=== PATIENT | female | born 1930 | race Caucasian/White ===

== ENCOUNTER 2017-02-01 11:24 | Emergency (ER) | payer MEDICARE, OTHER ==
[2017-02-01] MEDS ORDERED: Meclizine TAB* 12.5 MG PO ONE (14:43)
[2017-02-01] MEDS ORDERED: NS 0.9% 1000 ML* 1,000 ML IV ONE (14:43)
--- NOTE | 2017-02-01 15:09 | RAD ---
Indication: Dizziness; affecting gait. No known injury. Comparison: November 02, 2011 Technique: Noncontrast CT vertex of skull through foramen magnum. Report: Mild prominence of the cerebral sulci and cerebellar fissures reflecting atrophy. Small foci of hypodensity at the bilateral external capsules without change noted most consistent with small lacunar infarcts or microvascular disease. Negative for lewis matter white matter obscuration, intra or extra-axial hemorrhage, or mass effect. Unremarkable visualized orbital contents. No fracture or suspicious lesion of the calvarium or skull base. Grossly clear visualized paranasal sinuses and visualized mastoid air spaces. Negative for scalp hematoma. IMPRESSION: 1. No acute intracranial process evident. 2. Mild involutional change. Chronic small vessel ischemic disease versus chronic small lacunar infarcts at the external capsules.
--- NOTE | 2017-02-01 15:14 | RAD ---
INDICATION: Dizziness. COMPARISON: Comparison is made with prior chest x-ray study from October 29, 2014. TECHNIQUE: A portable view of the chest was obtained. FINDINGS: The heart is within normal limits in size for this portable exam. The lungs are underinflated. There is a minimal infiltrate at the right lung base most consistent with atelectasis. The lungs are otherwise clear. No pleural effusion is seen. IMPRESSION: NO EVIDENCE FOR ACUTE FINDING.
[2017-02-01 16:49] LABS: Hematocrit 36 % (35-47); Mean Corpuscular HGB Conc 33 g/dl (31-36); Mean Corpuscular Hemoglobin 30 pg (27-31); Mean Corpuscular Volume 90 fL (80-97); Mean Platelet Volume 7 um3 (7.4-10.4); Red Blood Count 4.03 10^6/ul (4.0-5.4); Red Cell Distribution Width 14 % (10.5-15); White Blood Count 5.2 10^3/ul (3.5-10.8)
[2017-02-01 16:56] LABS: Urine Bacteria Absent (Absent); Urine Bilirubin Negative (Negative); Urine Glucose Negative (Negative); Urine Nitrite Negative (Negative)
[2017-02-01 17:13] LABS: Albumin 3.8 g/dL (3.2-5.2); C Reactive Protein 2.61 mg/L (< 5.00); Calcium 9.9 mg/dL (8.6-10.3); EGFR African American 73.3 (>60); Globulin 2.4 g/dL (2-4); Magnesium 2.3 mg/dL (1.9-2.7); Potassium 4.6 mmol/L (3.5-5.0); Total Bilirubin 0.4 mg/dL (0.2-1.0); Total Protein 6.2 g/dL (6.4-8.9); Troponin I 0.01 ng/mL (<0.04)
[2017-02-01 17:37] LABS: TSH (Thyroid Stimulating Horm) 1.05 mcIU/mL (0.34-5.60)
--- NOTE | 2017-02-01 18:18 | ED ---
Edilma Willson Alok, scribed for Rodriguez Fitzpatrick MD on 02/01/17 at 1425 . Dizziness - HPI Summary HPI Summary: 86 y/o female presents to the ED for a bout of dizziness this morning at 1115. Pt states that she felt fine when waking up this morning, but while leaving her physical therapist at 1115 she began to feel [id number] dizziness causing her an unsteady gait. Pt states she rested and improved enough to drive home but then felt fatigue and disoriented after arriving home appearing pale and diaphoretic. Since arriving to the ED, patient states she feels much better an is able to ambulate but her symptoms return when she tilts her head backward. The overall episode of dizziness lasted about two hours in total. Pt adds slight nausea, chills, and that her heart is "pounding". Pt denies rhinorrea, sore throat, CP, SOB, or diarrhea. Pt states she has h/o vertigo and has had bouts of dizziness similar as today intermittently for the past 2-3 weeks. She states that she has also been stressed recently due to moving out of her home. PMHx includes 5 UTI since hip replacement in July 2016 and has been taking Keflex for the last 3 months. Pt also takes nexium for GERD. Pt denies sinus pressure or related sinus BENJAMIN but does note minor irritation from seasonal allergic. - History Of Current Complaint Chief Complaint: EDDizziness Stated Complaint: DIZZY/LOSS OF BALANCE Time Seen by Provider: 02/01/17 13:50 Hx Obtained From: Patient Onset/Duration: Still Present, Gradually Timing: Hours Severity Initially: Moderate Severity Currently: Mild Character: Room Spinning, Dizzy Aggravating Factor(s): Change In Head Position Alleviating Factor(s): Rest Associated Signs And Symptoms: Positive: Nausea, Diaphoresis, Unsteady Gait, Chills. Negative: Diarrhea, Chest Pain, SOB - Allergies/Home Medications Allergies/Adverse Reactions: Allergies Allergy/AdvReac Type Severity Reaction Status Date / Time Nitrofurantoin Allergy Severe heart Verified 10/02/16 16:22 palpatations Pyridoxine [From Beesix] Allergy Severe Swelling Verified 10/02/16 16:22 Latex Allergy Rash Verified 10/02/16 16:22 Sulfa Antibiotics Allergy Rash Verified 10/02/16 16:22 Tramadol Allergy nausea/vomi Verified 10/02/16 16:22 ting Oxycodone [From Percocet] AdvReac Vomiting Verified 10/02/16 16:22 environmental Allergy headache, Uncoded 10/02/16 16:22 stuffy nose PMH/Surg Hx/FS Hx/Imm Hx Endocrine/Hematology History: Reports: Hx Anemia - HX OF Denies: Hx Anticoagulant Therapy - states no, Hx Blood Disorders, Hx Bone Marrow Disease, Hx Diabetes, Hx Systemic Lupus Erythematosus, Hx Sickle Cell Disease, Hx Thyroid Disease, Hx Unexplained Bleeding, Other Endocrine/ Hematological Disorders Cardiovascular History: Reports: Hx Hypertension, Other Cardiovascular Problems/ Disorders - afib Denies: Hx Aneurysm, Hx Angina, Hx Angioplasty, Hx Auto Implanted Cardiovert Defib, Hx Cardiac Arrest, Hx Cardiomegaly, Hx Congenital Heart Disease, Hx Congestive Heart Failure, Hx Coronary Artery Disease, Hx Deep Vein Thrombosis, Hx Hypercholesterolemia, Hx Hypotension, Hx Pacemaker/ICD, Hx Peripheral Vascular Disease, Hx Rheumatic Fever, Hx Syncope, Hx Valvular Heart Disease Respiratory History: Reports: Hx Seasonal Allergies - environmental allergies Denies: Hx Asthma, Hx Chronic Bronchitis, Hx Chronic Obstructive Pulmonary Disease (COPD), Hx Cystic Fibrosis, Hx Lung Cancer, Hx Pleural Effusion, Hx Pneumonia, Hx Pulmonary Edema, Hx Pulmonary Embolism, Hx Sleep Apnea, Other Respiratory Problems/Disorders GI History: Reports: Hx Gall Bladder Disease - gall bladder surgery, Hx Gastroesophageal Reflux Disease, Other GI Disorders - acid reflux Denies: Hx Cirrhosis, Hx Crohn's Disease, Hx Diverticulosis, Hx Gastrointestinal Bleed, Hx Hiatal Hernia, Hx Irritable Bowel, Hx Jaundice, Hx Obstructive Bowel, Hx Ileostomy, Hx Pyloric Stenosis, Hx Ulcer History: Reports: Hx Kidney Stones, Other Problems/Disorders - overactive bladder Denies: Hx Acute Renal Failure, Hx Benign Prostatic Hyperplasia, Hx Chronic Renal Failure, Hx Dialysis, Hx Kidney Infection, Hx Renal Disease Musculoskeletal History: Reports: Hx Arthritis, Hx Back Problems, Hx Osteoporosis, Other Musculoskeletal History - knee replacement Denies: Hx Rheumatoid Arthritis, Hx Bursitis, Hx Congenital Bone Abnormalities, Hx Fibromyalgia, Hx Gout, Hx Orthopedic Injury, Hx Scoliosis, Hx Tendonitis Sensory History: Reports: Hx Cataracts, Hx Contacts or Glasses, Hx Macular Degeneration, 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 Denies: Hx Eye Injury, Hx Eye Prosthesis, Hx Glaucoma, Hx Vision Problem, Hx Hearing Aid, Hx Hearing Problem, Other Sensory Impairments Opthamlomology History: Reports: Hx Cataracts, Hx Contacts or Glasses, Hx Macular Degeneration Denies: Hx Eye Injury, Hx Eye Prosthesis, Hx Glaucoma, Hx Vision Problem, Other Sensory Impairments Psychiatric History: Denies: Hx Panic Disorder, Other Psychiatric Issues/Disorders - Cancer History Cancer Type, Location and Year: skin cancers Hx Chemotherapy: No Hx Radiation Therapy: No - Surgical History Surgery Procedure, Year, and Place: HYSTERECTOMY, ABDOMINAL CYST, CHOLECYSTECTOMY, LEFT KNEE REPLACEMENT, Bilateral hip replacement,. ERCP Hx Anesthesia Reactions: No Infectious Disease History: Denies: Hx Clostridium Difficile, Hx Hepatitis, Hx Human Immunodeficiency Virus (HIV), Hx of Known/Suspected MRSA, Hx Shingles, Hx Tuberculosis, Hx Known/ Suspected VRE, Hx Known/Suspected VRSA, History Other Infectious Disease, Traveled Outside the [place] in Last 30 Days - Family History Known Family History: Positive: Other - breast cancer Negative: Cardiac Disease, Hypertension, Diabetes - Social History Occupation: Retired Lives: With Family Alcohol Use: Weekly Substance Use Type: Reports: None Hx Tobacco Use: No Smoking Status (MU): Former Smoker Have You Smoked in the Last Year: No Review of Systems Positive: Chills, Skin Diaphoresis. Negative: Fever Negative: Sore Throat, Nasal Discharge Negative: Chest Pain Negative: Shortness Of Breath Positive: Nausea. Negative: Diarrhea Skin: Other - Pallor Neurological: Other - Dizziness, Unsteady Gait All Other Systems Reviewed And Are Negative: Yes Physical Exam Triage Information Reviewed: Yes Vital Signs On Initial Exam: Initial Vitals Temp Pulse Resp BP Pulse Ox 96.2 F 59 20 138/65 99 02/01/17 11:26 02/01/17 11:26 02/01/17 11:26 02/01/17 11:26 02/01/17 11:26 Vital Signs Reviewed: Yes Appearance: Positive: Well-Appearing, No Pain Distress Skin: Positive: Warm, Skin Color Reflects Adequate Perfusion, Dry Head/Face: Positive: Normal Head/Face Inspection Eyes: Positive: JENS, Other: - Slight nystagmus ENT: Positive: TMs normal Neck: Positive: Supple, Nontender Respiratory/Lung Sounds: Positive: Clear to Auscultation, Breath Sounds Present Cardiovascular: Positive: RRR Abdomen Description: Positive: Nontender, Soft Bowel Sounds: Positive: Present Musculoskeletal: Positive: Normal, Strength/ROM Intact Neurological: Positive: Normal, Sensory/Motor Intact, Alert, Oriented to Person Place, Time Psychiatric: Positive: Affect/Mood Appropriate Diagnostics - Vital Signs Vital Signs Temp Pulse Resp BP Pulse Ox 02/01/17 12:20 96.7 F 64 20 144/91 98 02/01/17 11:26 96.2 F 59 20 138/65 99 - Laboratory Lab Results: Lab Results 02/01/17 02/01/17 02/01/17 Range/Units 16:30 16:30 16:30 WBC 5.2 (3.5-10.8) 10^3/ul RBC 4.03 (4.0-5.4) 10^6/ul Hgb 12.0 (12.0-16.0) g/dl Hct 36 (35-47) % MCV 90 (80-97) fL MCH 30 (27-31) pg MCHC 33 (31-36) g/dl RDW 14 (10.5-15) % Plt Count 245 (150-450) 10^3/ul MPV 7 L (7.4-10.4) um3 Neut % (Auto) 50.3 (38-83) % Lymph % (Auto) 26.1 (25-47) % [place] % (Auto) 11.1 H (1-9) % Eos % (Auto) 11.4 H (0-6) % Baso % (Auto) 1.1 (0-2) % Absolute Neuts (auto) 2.6 (1.5-7.7) 10^3/ul Absolute Lymphs (auto) 1.4 (1.0-4.8) 10^3/ul Absolute Monos (auto) 0.6 (0-0.8) 10^3/ul Absolute Eos (auto) 0.6 (0-0.6) 10^3/ul Absolute Basos (auto) 0.1 (0-0.2) 10^3/ul Absolute Nucleated RBC 0 10^3/ul Nucleated RBC % 0.1 INR (Anticoag Therapy) 0.78 L (0.89-1.11) APTT 32.8 (26.0-36.3) seconds D-Dimer, Quantitative 379 H (Less Than 230) ng/mL Sodium (133-145) mmol/L Potassium (3.5-5.0) mmol/L Chloride (101-111) mmol/L Carbon Dioxide (22-32) mmol/L Anion Gap (2-11) mmol/L BUN (6-24) mg/dL Creatinine (0.51-0.95) mg/dL Est GFR ( Amer) (>60) Est GFR (Non-Af Amer) (>60) BUN/Creatinine Ratio (8-20) Glucose (70-100) mg/dL Lactic Acid (0.5-2.0) mmol/L Calcium (8.6-10.3) mg/dL Magnesium (1.9-2.7) mg/dL Total Bilirubin (0.2-1.0) mg/dL AST (13-39) U/L ALT (7-52) U/L Alkaline Phosphatase (34-104) U/L Total Creatine Kinase (10-223) U/L CK-MB (CK-2) (0.6-6.3) ng/mL Troponin I (<0.04) ng/mL C-Reactive Protein (< 5.00) mg/L B-Natriuretic Peptide ( - 100) pg/mL Total Protein (6.4-8.9) g/dL Albumin (3.2-5.2) g/dL Globulin (2-4) g/dL Albumin/Globulin Ratio (1-3) Lipase (11.0-82.0) U/L TSH (0.34-5.60) mcIU/mL Urine Color Straw Urine Appearance Clear Urine pH 6.0 (5-9) Ur Specific [place] 1.013 (1.010-1.030) Urine Protein Negative (Negative) Urine Ketones Negative (Negative) Urine Blood Negative (Negative) Urine Nitrate Negative (Negative) Urine Bilirubin Negative (Negative) Urine Urobilinogen Negative (Negative) Ur Leukocyte Esterase Trace H (Negative) Urine WBC (Auto) Trace(0-5/hpf) (Absent) Urine RBC (Auto) Absent (Absent) Ur Squamous Epith Cells Present H (Absent) Urine Bacteria Absent (Absent) Urine Glucose Negative (Negative) Urine Ascorbic Acid * H (Negative) 02/01/17 02/01/17 02/01/17 Range/Units 16:30 16:30 16:30 WBC (3.5-10.8) 10^3/ul RBC (4.0-5.4) 10^6/ul Hgb (12.0-16.0) g/dl Hct (35-47) % MCV (80-97) fL MCH (27-31) pg MCHC (31-36) g/dl RDW (10.5-15) % Plt Count (150-450) 10^3/ul MPV (7.4-10.4) um3 Neut % (Auto) (38-83) % Lymph % (Auto) (25-47) % [place] % (Auto) (1-9) % Eos % (Auto) (0-6) % Baso % (Auto) (0-2) % Absolute Neuts (auto) (1.5-7.7) 10^3/ul Absolute Lymphs (auto) (1.0-4.8) 10^3/ul Absolute Monos (auto) (0-0.8) 10^3/ul Absolute Eos (auto) (0-0.6) 10^3/ul Absolute Basos (auto) (0-0.2) 10^3/ul Absolute Nucleated RBC 10^3/ul Nucleated RBC % INR (Anticoag Therapy) (0.89-1.11) APTT (26.0-36.3) seconds D-Dimer, Quantitative (Less Than 230) ng/mL Sodium 139 (133-145) mmol/L Potassium 4.6 (3.5-5.0) mmol/L Chloride 106 (101-111) mmol/L Carbon Dioxide 29 (22-32) mmol/L Anion Gap 4 (2-11) mmol/L BUN 27 H (6-24) mg/dL Creatinine 0.93 (0.51-0.95) mg/dL Est GFR ( Amer) 73.3 (>60) Est GFR (Non-Af Amer) 57.0 (>60) BUN/Creatinine Ratio 29.0 H (8-20) Glucose 109 H (70-100) mg/dL Lactic Acid 1.1 (0.5-2.0) mmol/L Calcium 9.9 (8.6-10.3) mg/dL Magnesium 2.3 (1.9-2.7) mg/dL Total Bilirubin 0.40 (0.2-1.0) mg/dL AST 13 (13-39) U/L ALT 9 (7-52) U/L Alkaline Phosphatase 73 (34-104) U/L Total Creatine Kinase 34 (10-223) U/L CK-MB (CK-2) 1.9 (0.6-6.3) ng/mL Troponin I 0.01 (<0.04) ng/mL C-Reactive Protein 2.61 (< 5.00) mg/L B-Natriuretic Peptide 148 H ( - 100) pg/mL Total Protein 6.2 L (6.4-8.9) g/dL Albumin 3.8 (3.2-5.2) g/dL Globulin 2.4 (2-4) g/dL Albumin/Globulin Ratio 1.6 (1-3) Lipase 38 (11.0-82.0) U/L TSH 1.05 (0.34-5.60) mcIU/mL Urine Color Urine Appearance Urine pH (5-9) Ur Specific [place] (1.010-1.030) Urine Protein (Negative) Urine Ketones (Negative) Urine Blood (Negative) Urine Nitrate (Negative) Urine Bilirubin (Negative) Urine Urobilinogen (Negative) Ur Leukocyte Esterase (Negative) Urine WBC (Auto) (Absent) Urine RBC (Auto) (Absent) Ur Squamous Epith Cells (Absent) Urine Bacteria (Absent) Urine Glucose (Negative) Urine Ascorbic Acid (Negative) Result Diagrams: 02/01/17 16:30 02/01/17 16:30 Lab Statement: Any lab studies that have been ordered have been reviewed, and results considered in the medical decision making process. - Radiology CXR Xray Interpretation: Positive (See Comments) - IMPRESSION: NO EVIDENCE FOR ACUTE FINDING. Radiology Interpretation Completed By: Radiologist - CT Brain CT CT Interpretation: Positive (See Comments) - IMPRESSION: 1. No acute intracranial process evident. 2. Mild involutional change. Chronic small vessel ischemic disease versus chronic small lacunar infarcts at the external capsules. CT Interpretation Completed By: Radiologist - EKG 1134 Cardiac Rate: Bradycardia - 51 bpm EKG Rhythm: Sinus Bradycardia ST Segment: Normal Ectopy: None Dizzy Course/Dx - Course Course Of Treatment: NO CRITICAL CARE TIME Assessment/Plan: IMPROVED IN ED. HR MOSTLY IN THE 50'S. MONITOR HAS RECORED LOW 48. HR POSSIBLY LOW 39. RESULTS/HR DISCUSSED WITH PATIENT/FAMILY/ DR THOMAS. PATIENT WISHES TO GO HOME. DISCHARGE HOME STABLE; PATIENT WILL RETURN IF WORSE OR CONCERNS. - Diagnoses Provider Diagnoses: Dizziness, Bradycardia - Provider Notifications Discussed Care Of Patient with: Dr. Thomas (Internal medicine, Pt PCP) @ 1916 Discharge - Discharge Plan Condition: Stable Disposition: HOME Prescriptions: Meclizine HCl [Meclizine 25] 25 mg PO Q6HR PRN #15 tab PRN Reason: Dizziness Patient Education Materials: Dizziness (ED) Referrals: Jay Thomas MD [Primary Care Provider] - Additional Instructions: FOLLOW UP WITH JAY THOMAS IN THE NEXT 1-3 DAYS. TAKE MECLIZINE 25MG EVERY 6 HOURS NEEDED FOR DIZZINESS. RETURN TO THE EMERGENCY DEPARTMENT FOR ANY WORSENING OF YOUR CONDITION; CHEST PAIN, SHORTNESS OF BREATH, WEAKNESS, NUMBNESS, YOUR DIZZINESS DOES NOT IMPROVE OR WORSENS OR QUESTIONS OR CONCERNS. The documentation as recorded by the Edilma baker Alok accurately reflects the service I personally performed and the decisions made by me, Rodriguez Fitzpatrick MD.
[2017-02-01 18:39] VITALS: BP 148/59
== END 2017-02-01 18:20 | disposition home or self-care (01) ==
LOC: ED 11:24
DX: R42 Dizziness and giddiness (principal); R00.1 Bradycardia, unspecified; Z88.2 Allergy status to sulfonamides; K21.9 Gastro-esophageal reflux disease without esophagitis; Z88.5 Allergy status to narcotic agent; I10 Essential (primary) hypertension; Z85.828 Personal history of other malignant neoplasm of skin
CPT/HCPCS: 36415; 70450; 71010; 80053; 81003; 81015; 82550; 82553; 83605; 83690; 83735; 83880; 84443; 84484; 85025; 85379; 85610; 85730; 86140; 87086; 93005; 99283; A9270-GY

== ENCOUNTER 2018-08-10 11:41 | Emergency (ER) | payer MEDICARE, OTHER ==
[2018-08-10 11:52] VITALS: BP 142/70
--- NOTE | 2018-08-10 12:28 | UC ---
Shoulder Pain HPI - HPI Summary HPI Summary: 88 yo F, hx of rotator cuff tears in R shoulder, presenting w 2-3 mo of L shoulder pain that feels similar to R rotator cuff pain. Since diagnosis of R sided injury, she has primarily used her LUE for many tasks. She now has difficulty with ROM and increased pain in L shoulder w attempted ROM. She denies any injuries to the shoulder. Does not have weakness or numbness. She's not currently taking any medications for the pain. Family hx non-contributory. medications discussed w patient - History of Current Complaint Chief Complaint: UCUpperExtremity Stated Complaint: SHOULDER PAIN Time Seen by Provider: 08/10/18 12:22 Hx Obtained From: Patient Pain Intensity: 10 - Allergies/Home Medications Allergies/Adverse Reactions: Allergies Allergy/AdvReac Type Severity Reaction Status Date / Time MS Nitrofurantoin Allergy Severe heart Verified 02/07/17 14:47 [Nitrofurantoin] palpatations MS Pyridoxine [From Beesix] Allergy Severe Swelling Verified 02/07/17 14:47 MS Latex [Latex] Allergy Rash Verified 02/07/17 14:47 MS Sulfa Antibiotics Allergy Rash Verified 02/07/17 14:47 [Sulfa Antibiotics] MS Tramadol [Tramadol] Allergy nausea/vomi Verified 02/07/17 14:47 ting MS Oxycodone [From Percocet] AdvReac Vomiting Verified 02/07/17 14:47 environmental Allergy headache, Uncoded 02/07/17 14:47 stuffy nose PMH/Surg Hx/FS Hx/Imm Hx Other History Of: Negative For: Anticoagulant Therapy - states no - Surgical History Surgical History: Yes Surgery Procedure, Year, and Place: HYSTERECTOMY,. ABDOMINAL CYST,. CHOLECYSTECTOMY,. LEFT KNEE REPLACEMENT,. Bilateral hip replacement,. ERCP. 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 MOHS ON NOSE REMOVED. DR. WYLIE REPAIR TO NOSE FOR MOHS - Family History Known Family History: Positive: Other - breast cancer Negative: Cardiac Disease, Hypertension, Diabetes - Social History Alcohol Use: Weekly Substance Use Type: None Smoking Status (MU): Former Smoker Have You Smoked in the Last Year: No - Immunization History Most Recent Influenza Vaccination: last month Most Recent Tetanus Shot: does not know Most Recent Pneumonia Vaccination: within five years Review of Systems Musculoskeletal: Decreased ROM Neurological: Negative All Other Systems Reviewed And Are Negative: Yes Physical Exam Triage Information Reviewed: Yes Appearance: Well-Appearing, Well-Nourished Vital Signs: Initial Vital Signs Temp 98 F 08/10/18 11:49 Pulse 59 08/10/18 11:49 Resp 17 08/10/18 11:49 BP 142/70 08/10/18 11:49 Pulse Ox 99 08/10/18 11:49 Vital Signs Reviewed: Yes Eyes: Positive: Conjunctiva Clear Respiratory: Positive: No respiratory distress, No accessory muscle use Musculoskeletal Exam: Other - L shoulder TTP, reduced ROM 2/2 pain, unable to lift after for empty-can test 2/2 pain, +weakness w posterior lift off test Musculoskeletal: Positive: Strength Intact Neurological: Positive: Alert, Muscle Tone Normal Psychological: Positive: Age Appropriate Behavior Skin Exam: Normal Shoulder Course/Dx - Course Course Of Treatment: chronic shoulder pain. XR performed 1 mo ago showing OA and possible rotator cuff injury. patient refused rpt imaging given no clinical changes. ibuprofen and tylenol for pain. will make f/u appointment w PCP and Orthopedist - Differential Dx/Diagnosis Provider Diagnoses: chronic shoulder pain Discharge - Sign-Out/Discharge Documenting (check all that apply): Patient Departure All imaging exams completed and their final reports reviewed: No Studies - Discharge Plan Condition: Stable Disposition: HOME Patient Education Materials: Rotator Cuff Injury (ED), Osteoarthritis (ED) Referrals: Janelle Robertson MD [Primary Care Provider] - - Billing Disposition and Condition Condition: STABLE Disposition: Home
[2018-08-10] MEDS ORDERED: Ibuprofen TAB* 400 MG PO ONE (12:29)
[2018-08-10] MEDS: Acetaminophen TAB* 325 MG PO ONE ×2 (13:01→13:04)
[2018-08-10] MEDS ORDERED: Acetaminophen TAB* 325 MG ONE (13:06)
== END 2018-08-10 13:14 | disposition home or self-care (01) ==
LOC: UCEAST 11:41
DX: M25.512 Pain in left shoulder (principal); Z96.652 Presence of left artificial knee joint; Z96.643 Presence of artificial hip joint, bilateral; Z88.5 Allergy status to narcotic agent; Z88.2 Allergy status to sulfonamides; Z88.1 Allergy status to other antibiotic agents; Z91.040 Latex allergy status; Z87.891 Personal history of nicotine dependence
CPT/HCPCS: 99212; A9270-GY; G0463

== ENCOUNTER 2018-12-04 15:47 | Observation (INO) | payer MEDICARE, OTHER ==
--- NOTE | 2018-12-04 16:05 | ED ---
Shortness of Breath - HPI Summary HPI Summary: Pt is an 88 y/o F presenting to the ED with a chief complaint of shortness of breath. The pt had a lung biopsy done this morning which could not be fully completed due to pt coughing up blood. On her way out, she had sudden chest pain and sob that is now resolved. Pt reports moderate sharp R sided chest/ flank pain where the biopsy was done. - History of Current Complaint Chief Complaint: EDChestPainROMI Time Seen by Provider: 12/04/18 15:56 Hx Obtained From: Patient Onset/Duration: Sudden Onset, Lasting Minutes, Resolved Current Severity: Mild Aggrevating Factors: Nothing Alleviating Factors: Spontaneous Resolution - Allergy/Home Medications Allergies/Adverse Reactions: Allergies Allergy/AdvReac Type Severity Reaction Status Date / Time codeine Allergy Vomiting Verified 12/04/18 15:56 latex Allergy Rash Verified 12/04/18 15:56 nitrofurantoin Allergy See Comment Verified 12/04/18 15:56 oxycodone [From Percocet] Allergy Vomiting Verified 12/04/18 15:56 pyridoxine Allergy Vomiting Verified 12/04/18 15:56 Sulfa (Sulfonamide Allergy Rash Verified 12/04/18 15:56 Antibiotics) tramadol Allergy Nausea And Verified 12/04/18 15:56 Vomiting environmental Allergy headache, Uncoded 11/27/18 10:28 stuffy nose PMH/Surg Hx/FS Hx/Imm Hx Previously Healthy: No Endocrine/Hematology History: Reports: Hx Anemia - HX OF Denies: Hx Anticoagulant Therapy - states no, Hx Blood Disorders, Hx Bone Marrow Disease, Hx Diabetes, Hx Systemic Lupus Erythematosus, Hx Sickle Cell Disease, Hx Thyroid Disease, Hx Unexplained Bleeding, Other Endocrine/ Hematological Disorders Cardiovascular History: Reports: Hx Hypertension - ON MEDICATION, Other Cardiovascular Problems/Disorders - afib Denies: Hx Aneurysm, Hx Angina, Hx Angioplasty, Hx Auto Implanted Cardiovert Defib, Hx Cardiac Arrest, Hx Cardiomegaly, Hx Congenital Heart Disease, Hx Congestive Heart Failure, Hx Coronary Artery Disease, Hx Deep Vein Thrombosis, Hx Hypercholesterolemia, Hx Hypotension, Hx Pacemaker/ICD, Hx Peripheral Vascular Disease, Hx Rheumatic Fever, Hx Syncope, Hx Valvular Heart Disease Respiratory History: Reports: Hx Seasonal Allergies - environmental allergies Denies: Hx Asthma, Hx Chronic Bronchitis, Hx Chronic Obstructive Pulmonary Disease (COPD), Hx Cystic Fibrosis, Hx Lung Cancer, Hx Pleural Effusion, Hx Pneumonia, Hx Pulmonary Edema, Hx Pulmonary Embolism, Hx Sleep Apnea, Other Respiratory Problems/Disorders GI History: Reports: Hx Gall Bladder Disease - gall bladder surgery, Hx Gastroesophageal Reflux Disease, Other GI Disorders - acid reflux Denies: Hx Cirrhosis, Hx Crohn's Disease, Hx Diverticulosis, Hx Gastrointestinal Bleed, Hx Hiatal Hernia, Hx Irritable Bowel, Hx Jaundice, Hx Obstructive Bowel, Hx Ileostomy, Hx Pyloric Stenosis, Hx Ulcer History: Reports: Hx Kidney Stones, Other Problems/Disorders - overactive bladder Denies: Hx Acute Renal Failure, Hx Benign Prostatic Hyperplasia, Hx Chronic Renal Failure, Hx Dialysis, Hx Kidney Infection, Hx Renal Disease Musculoskeletal History: Reports: Hx Arthritis, Hx Back Problems, Hx Osteoporosis, Other Musculoskeletal History - knee replacement Denies: Hx Rheumatoid Arthritis, Hx Bursitis, Hx Congenital Bone Abnormalities, Hx Fibromyalgia, Hx Gout, Hx Orthopedic Injury, Hx Scoliosis, Hx Tendonitis Sensory History: Reports: Hx Cataracts, Hx Contacts or Glasses, Hx Macular Degeneration, 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, Hx Hearing Aid - DOES HAVE 1 Denies: Hx Eye Injury, Hx Eye Prosthesis, Hx Glaucoma, Hx Vision Problem, Hx Hearing Problem, Other Sensory Impairments Opthamlomology History: Reports: Hx Cataracts, Hx Contacts or Glasses, Hx Macular Degeneration Denies: Hx Eye Injury, Hx Eye Prosthesis, Hx Glaucoma, Hx Vision Problem, Other Sensory Impairments Psychiatric History: Denies: Hx Panic Disorder, Other Psychiatric Issues/Disorders - Cancer History Cancer Type, Location and Year: skin cancers, basal and squamous Hx Chemotherapy: No Hx Radiation Therapy: No - Surgical History Surgery Procedure, Year, and Place: HYSTERECTOMY,. ABDOMINAL CYST,. CHOLECYSTECTOMY,. LEFT KNEE REPLACEMENT,. Bilateral hip replacement,. ERCP. 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 MOHS ON NOSE REMOVED. DR. WYLIE REPAIR TO NOSE FOR MOHS Hx Anesthesia Reactions: No Infectious Disease History: No Infectious Disease History: Denies: Hx Clostridium Difficile, Hx Hepatitis, Hx Human Immunodeficiency Virus (HIV), Hx of Known/Suspected MRSA, Hx Shingles, Hx Tuberculosis, Hx Known/ Suspected VRE, Hx Known/Suspected VRSA, History Other Infectious Disease, Traveled Outside the [place] in Last 30 Days - Family History Known Family History: Positive: Other - breast cancer Negative: Cardiac Disease, Hypertension, Diabetes - Social History Alcohol Use: Weekly Alcohol Amount: 3-4 glasses of wine per week Substance Use Type: Reports: None Hx Tobacco Use: No Smoking Status (MU): Former Smoker Have You Smoked in the Last Year: No Review of Systems Negative: Fever Positive: Chest Pain Positive: Shortness Of Breath All Other Systems Reviewed And Are Negative: Yes Physical Exam - Summary Physical Exam Summary: Appearance: Well appearing, no pain distress Skin: warm, dry, reflects adequate perfusion. Bandaid on R chest Head/face: normal Eyes: EOMI, JENS ENT: normal Neck: supple, non-tender Respiratory: CTA, breath sounds present Cardiovascular: RRR, pulses symmetrical Abdomen: non-tender, soft Musculoskeletal: normal, strength/ROM intact Neuro: normal, sensory motor intact, A&Ox3 Triage Information Reviewed: Yes Vital Signs On Initial Exam: Initial Vitals Temp Pulse Resp BP Pulse Ox 97.7 F 62 16 130/58 94 12/04/18 15:50 12/04/18 15:50 12/04/18 15:50 12/04/18 15:50 12/04/18 15:50 Vital Signs Reviewed: Yes Diagnostics - Vital Signs Vital Signs Temp Pulse Resp BP Pulse Ox 12/04/18 15:50 97.7 F 62 16 130/58 94 - Laboratory Result Diagrams: 12/04/18 16:26 12/04/18 16:26 Lab Statement: Any lab studies that have been ordered have been reviewed, and results considered in the medical decision making process. - CT CT chest w/ contrast CT Interpretation Completed By: Radiologist Summary of CT Findings: 1. Small right-sided pneumothorax. 2. Right upper lobe parenchymal hemorrhage similar in appearance to the same to a final image from the CT lung biopsy. There is no significant difference during the multiple phases of this CT of the chest to indicate active extravasation. ED physician has reviewed this report. - EKG 1602 Cardiac Rate: Bradycardia - 57bpm EKG Rhythm: Sinus Bradycardia ST Segment: Normal Ectopy: None Summary of EKG Findings: RBBB. Course/Dx - Course Course Of Treatment: Pt is an 88 y/o F presenting to the ED with a chief complaint of shortness of breath. The pt had a lung biopsy done this morning which could not be fully completed due to pt coughing up blood. On her way out, she had sudden chest pain and sob that is now resolved. Spoke with Dr. Juarez who recommended a CT of the chest with contrast. Spoke with Dr. Juarez again, who stated she has parenchymal hemorrhage and pneumothorax 10%, and wants the pt to follow up with him in the morning. Dr. Martinez accepted the patient to [facility] [place]. - Diagnoses Differential Diagnosis/HQI/PQRI: Positive: Bronchitis, Pneumonia, Pneumothorax Provider Diagnoses: Pneumothorax, Chest pain, History of lung biopsy Discharge - Sign-Out/Discharge Documenting (check all that apply): Patient Departure - Discharge Plan Condition: Stable Disposition: ADMITTED TO [facility] Referrals: Janelle Robertson MD [Primary Care Provider] - Carlo Juarez MD [Medical Doctor] - Additional Instructions: Please follow up with Dr. Juarez in the morning for x-ray on Tuesday, December 06. - Billing Disposition and Condition Condition: STABLE Disposition: Admitted to [facility] - Attestation Statements Document Initiated by Nkechiibe: Yes Documenting Scribe: Janae Mao Provider For Whom Mayuir is Documenting (Include Credential): Glenn Simpson MD. Scribe Attestation: IJanae, scribed for Glenn Simpson MD. on 12/04/18 at 2117. Scribe Documentation Reviewed: Yes Provider Attestation: The documentation as recorded by the scribe, Janae Mao accurately reflects the service I personally performed and the decisions made by me, Glenn Simpson MD. Status of Scribe Document: Viewed Consult Consult: 1609 - Spoke with Dr. Juarez who recommended a CT of the chest with contrast. 1814 - Spoke with Dr. Juarez who stated the pt has a parenchymal hemorrhage and 10% pneumothorax. He advised the pt to follow up with him. 1957 - Spoke with Dr. Harper who wants to reach Dr. Juarez. Dr. Martinez will be accepting the pt and Dr. Juarez will follow up in the morning.
[2018-12-04] MEDS ORDERED: NS 0.9% 1000 ML** 1,000 ML IV ONE (16:07)
[2018-12-04 16:36] LABS: ABS Basophils 0.1 10^3/ul (0-0.2); ABS Eosinophils 0.3 10^3/ul (0-0.6); ABS Lymphocytes 1.3 10^3/ul (1.0-4.8); ABS Monocytes 0.4 10^3/ul (0-0.8); ABS Neutrophils 2.3 10^3/ul (1.5-7.7); ABS Nucleated RBC 0 10^3/ul; Eosinophil % 7.4 %; Hematocrit 37 % (35-47); Hemoglobin 12.1 g/dl (12.0-16.0); Mean Corpuscular HGB Conc 33 g/dl (31-36); Mean Corpuscular Hemoglobin 30 pg (27-31); Mean Corpuscular Volume 91 fL (80-97); Mean Platelet Volume 6.7 fL (7.4-10.4); Nucleated Red Blood Cells % 0.1; Platelet Count 237 10^3/ul (150-450); Red Blood Count 4.08 10^6/ul (4.00-5.40); Red Cell Distribution Width 14 % (10.5-15); White Blood Count 4.4 10^3/ul (3.5-10.8)
[2018-12-04 16:45] LABS: Activated Partial Thrombo Time 33.1 seconds (26.0-36.3); INR 0.89 (0.77-1.02)
[2018-12-04 16:51] LABS: Albumin 3.8 g/dL (3.2-5.2); Albumin/Globulin Ratio 1.6 (1-3); BUN/Creatinine Ratio 32.6 (8-20); Calcium 9.9 mg/dL (8.6-10.3); EGFR Non-African American 55.4 (>60); Globulin 2.4 g/dL (2-4); Potassium 4.6 mmol/L (3.5-5.0); Total Bilirubin 0.4 mg/dL (0.2-1.0); Total Protein 6.2 g/dL (6.4-8.9)
[2018-12-04 16:52] LABS: Troponin I 0.01 ng/mL (<0.04)
[2018-12-04] MEDS ORDERED: Iodixanol* (CONTRAST) 320 MG/ML 100 ML SDV IV ONE (17:06)
[2018-12-04] MEDS ORDERED: Acetaminophen TAB* 325 MG PO ONE (19:56)
[2018-12-04] MEDS ORDERED: Acetaminophen TAB* 325 MG PO PRN (21:40)
[2018-12-04] MEDS ORDERED: Ketorolac INJ* 30 MG/ML 1 ML VIAL IV PUSH PRN (21:41)
[2018-12-05] MEDS ORDERED: Levothyroxine TAB* 25 MCG TAB PO SCH (06:00)
--- NOTE | 2018-12-05 06:17 | PN ---
Subjective Date of Service: 12/05/18 Interval History: HD #1 12/05 88 yo F PMH of HTN, hypohtyroid, hx of taksubo and brief PAF, mitral and aortic valve d/o, who had a lung nodule on surv and presented post procedure of lung nodule bx of R UL c/b x1 episode of hemoptysis and shortness of breath. Overnight, no acute events. Sinus tele, VSS otherwise, given ketoralac 30IV x 1 once, no further hemoptysis Pending repeat CXR Pt seen this morning resting comfortably. Objective Active Medications: Acetaminophen (Tylenol Tab*) 650 mg PO Q6H PRN PRN Reason: FEVER/PAIN Aspirin (Aspirin Ec Tab*) 81 mg PO BID JUANCARLOS Ketorolac Tromethamine (Toradol Inj*) 30 mg IV PUSH Q6H PRN PRN Reason: PAIN Last Admin: 12/05/18 00:20 Dose: 30 mg Levothyroxine Sodium (Synthroid Tab*) 50 mcg PO DAILY@0600 JUANCARLOS Lisinopril (Prinivil Tab*) 10 mg PO DAILY COUNTS INCLUDE 234 BEDS AT THE [facility] Vital Signs - 8 hr 12/04/18 12/04/18 12/04/18 22:15 22:37 22:45 Temperature Pulse Rate 48 47 Respiratory 15 16 16 Rate Blood Pressure 124/63 111/50 (mmHg) O2 Sat by Pulse 97 98 Oximetry 12/04/18 12/04/18 12/05/18 23:00 23:15 00:08 Temperature 98.6 F Pulse Rate 48 48 52 Respiratory 14 13 18 Rate Blood Pressure 105/54 104/54 (mmHg) O2 Sat by Pulse 97 97 98 Oximetry 12/05/18 12/05/18 12/05/18 00:44 01:20 03:05 Temperature 97.7 F 97.7 F Pulse Rate 51 58 Respiratory 16 16 17 Rate Blood Pressure 122/50 132/59 (mmHg) O2 Sat by Pulse 94 97 Oximetry Oxygen Devices in Use Now: None Appearance: Well woman in NAD Eyes: No Scleral Icterus Ears/Nose/Mouth/Throat: NL Teeth, Lips, Gums Respiratory: Symmetrical Chest Expansion and Respiratory Effort Cardiovascular: NL Sounds; No Murmurs; No JVD, RRR Abdominal: NL Sounds; No Tenderness; No Distention Extremities: No Edema Skin: No Rash or Ulcers Neurological: Alert and Oriented x 3 Result Diagrams: 12/04/18 16:26 12/04/18 16:26 Assess/Plan/Problems-Billing Assessment: 88 yo F PMH of HTN, hypohtyroid, hx of taksubo and brief PAF, mitral and aortic valve d/o, who had a lung nodule on surv and presented post procedure of lung nodule bx of R UL c/b x1 episode of hemoptysis and shortness of breath. - Patient Problems (1) Hemoptysis Current Visit: Yes Status: Acute Code(s): R04.2 - HEMOPTYSIS SNOMED Code(s ): 38766166 Comment: Post procedural x1 with no other episodes overnight -Repeat CXR today and also scheduled as outpt -Reassurance offered (2) Pneumothorax of right lung after biopsy Current Visit: Yes Status: Acute Code(s): J95.811 - POSTPROCEDURAL PNEUMOTHORAX SNOMED Code(s): 46399930 Comment: No change on repeat CT, common complication, not requiring O2, can follow as outpatient (3) Hypertension Current Visit: Yes Status: Acute Code(s): I10 - ESSENTIAL (PRIMARY) HYPERTENSION SNOMED Code(s): 58718857 Comment: Stable, continue home meds (4) Paroxysmal A-fib Current Visit: Yes Status: Acute Code(s): I48.0 - PAROXYSMAL ATRIAL FIBRILLATION SNOMED Code(s): 569843726 Comment: On tele in sinus over night, not on AC (5) Hypothyroid Current Visit: Yes Status: Acute Code(s): E03.9 - HYPOTHYROIDISM, UNSPECIFIED SNOMED Code(s): 06049121 Comment: Continue home meds (6) DVT prophylaxis Current Visit: Yes Status: Acute Code(s): IRX0118 - SNOMED Code(s): 319016067 Comment: SCDS (7) DNR (do not resuscitate) Current Visit: Yes Status: Acute Comment: As per [facility] Status and Disposition: Stable, can be d/c 12/05/2018
[2018-12-05 07:00] LABS: ABS Basophils 0.1 10^3/ul (0-0.2); ABS Eosinophils 0.3 10^3/ul (0-0.6); ABS Lymphocytes 1.1 10^3/ul (1.0-4.8); ABS Monocytes 0.5 10^3/ul (0-0.8); ABS Neutrophils 2.3 10^3/ul (1.5-7.7); ABS Nucleated RBC 0 10^3/ul; Eosinophil % 7.9 %; Hematocrit 33 % (35-47); Lymphocyte % 25.8 %; Mean Corpuscular HGB Conc 33 g/dl (31-36); Mean Corpuscular Hemoglobin 30 pg (27-31); Mean Corpuscular Volume 91 fL (80-97); Mean Platelet Volume 7.1 fL (7.4-10.4); Nucleated Red Blood Cells % 0.2; Platelet Count 203 10^3/ul (150-450); Red Blood Count 3.67 10^6/ul (4.00-5.40); Red Cell Distribution Width 14 % (10.5-15); White Blood Count 4.4 10^3/ul (3.5-10.8)
--- NOTE | 2018-12-05 08:47 | PN ---
Progress Note - Progress Note Date of Service: 12/05/18 Note: Date of Service: 12/05/18 I reviewed Mrs. Mclaughlin's most recent chest xray as well as the previous day's chest imaging. Mrs. Mclaughlin has a small right PTX one day status post right upper lobe biopsy that was stopped early for parenchymal hemorrhage and hemoptysis. The degree of parenchymal hemorrhage is stable to the previous day chest xray and there was no evidence of active bleeding on the CT chest w/ contrast acquired 12/04/18. As I discussed with Dr. Simpson last night over the telephone, I recommend serial chest xrays as an outpatient unless the patient experiences an abrupt change in clinical symptoms (i.e. SOB and/or chest pain).
[2018-12-05] MEDS ORDERED: Lisinopril TAB* 5 MG PO SCH (09:00)
[2018-12-05] MEDS ORDERED: Aspirin EC TAB* 81 MG TAB.EC PO SCH (09:00)
--- NOTE | 2018-12-05 10:28 | HP ---
HISTORY AND PHYSICAL: DATE OF ADMISSION: 12/04/18 CHIEF COMPLAINT: Hemoptysis. PRIMARY CARE PROVIDER: Janelle Robertson MD CONTROL ANALYST: Patient's son, who is Yuan Mclaughlin. CODE STATUS: DNR. SOURCE OF INFORMATION: HPI is obtained from the patient and review of medical records. The patient is a good historian. HISTORY OF PRESENT ILLNESS: An 88-year-old female with a past medical history of hypertension, hypothyroid, distant history of takotsubo and brief paroxysmal atrial fibrillation, mitral and aortic valve disease, and recently diagnosed pulmonary nodule while on surveillance, who presented status post pulmonary nodule biopsy by interventional radiology with complication of brief postprocedural hemoptysis and small pneumothorax on the right side of the lung. The patient did have procedure earlier today and in the postprocedural setting , she had coughing and shortness of breath and coughed up 10 to 20 mL of bloody sputum. She then had also severe shortness of breath, then requested to be transferred to the emergency room. She currently has residual right-sided chest pain, but denies any other chest pressure, palpitations. She has no GI, , neuro, heme, or musculoskeletal complaints. As above, she had brief shortness of breath during this episode of hemoptysis, but was otherwise in her usual state of health prior. In the emergency room, her vital signs were stable. Her labs were unremarkable. A CT scan was done, which showed a small right-sided pneumothorax and right upper lobe hemorrhage similar to the time of the procedural event when biopsy was done under CT scan guidance. She received Tylenol. Interventional radiology was consulted, who advised the patient to have followup chest x-ray in 3 days and to be followed as an outpatient, but secondary to the patient feeling uncomfortable with pain and needing pain control, the hospitalist was advised to evaluate the patient for observation status. PAST MEDICAL HISTORY: 1. Hypothyroid. 2. Seasonal allergies. 3. Hypertension. 4. History of takotsubo's with brief paroxysmal atrial fibrillation. PAST SURGICAL HISTORY: 1. She is status post total right and total knee replacement on the right. 2. She is status post cholecystectomy. MEDICATIONS: 1. The patient takes glucosamine chondroitin 1000 mg 1 tab p.o. daily. 2. Levothyroxine 50 mcg p.o. daily. 3. Multivitamin 1 cap p.o. daily. 4. [place]-3 fatty acids 1 tab p.o. daily. 5. Premarin vaginal cream 1 application PV t.i.d. p.r.n. 6. Aspirin 81 mg p.o. b.i.d. 7. Lisinopril 10 mg p.o. daily. ALLERGIES: Extensive to CODEINE, LATEX, NITROFURANTOIN, OXYCODONE and PYRIDOXINE. FAMILY HISTORY: Noncontributory. SOCIAL HISTORY: She is retired and lives with her . She is independent in her IADLs and ADLs. She is a former smoker, 10 pack year history. Scant alcohol use. No history of illicits. REVIEW OF SYSTEMS: Constitutional: Denies fevers, chills or malaise. HEENT: Denies headaches, vision changes or dysphagia. Cardiovascular: Denies sola chest pain, palpitations, or orthopnea. Respiratory: Reports cough, mild shortness of breath, and pleuritic chest pain. Denies increased work of breathing or dyspnea on exertion. GI: No nausea, vomiting, diarrhea or abdominal pain. : No dysuria or hematuria. Musculoskeletal: No myalgias, arthralgias, or weakness. Skin: No new rashes or lesions. Neurologic: No focal weakness, no numbness. Psychiatric: No depression or anxiety. PHYSICAL EXAMINATION GENERAL: She is a pleasant woman in no acute distress, lying flat in bed. VITAL SIGNS: The patient's vital signs are blood pressure 105/54, heart rate 50 , respiratory rate 13, oxygen saturation 97%, temperature 98.6. HEENT: She has moist mucous membranes. Clear oropharynx. Sclerae anicteric. Normocephalic, atraumatic. NECK: Supple with no cervical lymphadenopathy or supraclavicular lymphadenopathy. RESPIRATORY: She has no increased work of breathing. Her lungs are clear to auscultation with scant crackles in right upper lobe. CARDIAC: She has a 2/6 systolic ejection murmur in the right upper sternal border, but otherwise S1 and S2. No JVP. GI: Belly is soft, nontender, nondistended. MUSCULOSKELETAL: She moves all 4 extremities with full range of motion. No evidence of edema in the lower extremities. NEURO: Cranial nerves II through XII are grossly intact with no focal neurologic deficits. A and O x3. SKIN: No rashes or lesions. DIAGNOSTIC STUDIES/LAB DATA: CBC with a white blood cell count of 4.4, hemoglobin 12.1, hematocrit 37, platelets 237. BMP has a sodium of 139, potassium 4.6, chloride 109, carbon dioxide 29, BUN 31, creatinine 0.95, glucose 194. Imaging: Chest CT showed small right-sided pneumothorax and right upper lobe parenchymal hemorrhage similar in appearance to the same final image from the CT - guided lung biopsy. No significant difference in multiple stages of the CT from the chest to indicate any active extravasation. EKG shows sinus bradycardia, normal axis, right bundle branch block, which is old and no evidence of active ischemia. Imaging and EKGs were reviewed by myself. ASSESSMENT AND PLAN: This is an 88-year-old female with past medical history of hypertension, hypothyroid, distant history of takotsubo's and brief paroxysmal atrial fibrillation, who presented status post pulmonary nodule biopsy with complication of brief postprocedural hemoptysis and small pneumothorax. She is admitted for observation for pain control. 1. Hemoptysis. This is in the setting of postprocedure. The patient will be admitted for pain control. She is currently not requiring oxygen. We will place her on telemetry. 2. Pneumothorax. This is postprocedural and small. We will arrange for a repeat chest x-ray prior to discharge, which is anticipated for hospital day #1. 3. Hypothyroid. We will continue home meds. 4. Hypertension. We will resume home meds. 5. History of paroxysmal atrial fibrillation. We will keep on telemetry. 6. FEN. Unrestricted diet. 7. DVT. We will place the patient on SCDs. 8. Disposition. Anticipate discharge tomorrow a.m. and have counseled the family as such. The patient and her family are counseled and are in agreement with plan of care. Her PCP will be contacted during this admission. TIME SPENT: Thirty five minutes was spent in the planning and execution of this admission with over half of that spent at the bedside involved in the direct patient care. [id number]/[facility] #: [id number] ANA
[2018-12-05 13:47] VITALS: BP 111/57
--- NOTE | 2018-12-05 20:38 | DS ---
CC: Dr. Janelle Robertson * DISCHARGE SUMMARY: DATE OF ADMISSION: 12/04/18 DATE OF DISCHARGE: 12/05/18 HOSPITAL STATUS: Observation. PROVIDER: Jose Ramirez NP ATTENDING PHYSICIAN: Dr. Smith * (report dictated by Jose Ramirez NP). PRIMARY CARE PROVIDER: Dr. Janelle Robertson. RESIDENCE: [facility]. DISCHARGE DIAGNOSES: 1. Small right apical pneumothorax, status post procedure. 2. Hemoptysis. HISTORY OF PRESENT ILLNESS AND HOSPITAL COURSE: Please see history and physical by Dr. Prachi Martinez for full admission details, but in summary, this is an 88-year-old female with a past medical history of hypertension, hypothyroid, distant history of takotsubo's, history of brief paroxysmal atrial fibrillation , mitral and aortic valve disease, and recently diagnosed pulmonary nodule, who presented for a pulmonary nodule biopsy by Interventional Radiology on 12/04/18 , when she underwent the biopsy with Dr. Juarez and the biopsy was stopped early for parenchymal hemorrhage and hemoptysis. The patient had an episode of coughing and shortness of breath and coughed up 10 to 20 mL of bloody sputum and reported severe shortness of breath and requested to be transferred to the emergency department, which she was. Hospital Medicine admitted the patient for observation. On admission, she did report she had residual right-sided chest pain, but denied any other chest pressure or palpitations. At the time of admission, her shortness of breath had resolved. Her vital signs were stable. Today, on evaluation, the patient reports that she feels much better and the right- sided chest pain has resolved. She has had a small amount of hemoptysis today, but states she feels well and wants to go home. She did have a repeat chest x-ray this morning, which showed a small increase in the pneumothorax. This was reviewed by Dr. Juarez, who recommends the patient can be discharged home and can have followup serial chest x-rays as an outpatient. The patient has been scheduled to have a chest x-ray tomorrow Tuesday, , and Tuesday. I discussed the case with her primary care provider, Dr. Janelle Robertson, who will see the patient in her office on Tuesday. Worsening signs and symptoms were discussed with the patient and she states understanding. The patient ambulated around the unit maintaining her oxygenation. Vital signs are stable. She is stable for discharge to home. HOME MEDICATIONS: 1. [place]-3 fatty acids (fish oil) 1000 mg p.o. daily. 2. Premarin vaginal cream 1 application, see instructions. 3. Multivitamin with minerals 1 cap p.o. daily. 4. Lisinopril 10 mg p.o. daily. 5. Synthroid 50 mcg p.o. daily. 6. Glucosamine 1 tab p.o. daily. 7. Cranberry 1 tab p.o. daily. Medication on hold: Aspirin 81 mg daily, to be restarted by PCP. PHYSICAL EXAMINATION: Vital Signs: Temperature 98.2, heart rate 53, respirations 16, O2 sat 98% on room air, blood pressure 111/57. General Appearance: A well-developed 88-year-old female, sitting up in bed, alert and oriented x3, in no acute distress, very pleasant, good historian. HEENT: Head is normocephalic, atraumatic. Pupils are equal and reactive to light. Oropharynx is clear. Moist mucous membranes. Cardiac: S1, S2. Regular rate and rhythm. No murmur, rub, or gallop appreciated. Lungs: Clear to auscultation bilaterally, slightly diminished in the right upper lobe. No respiratory distress. Respirations are easy and smooth. Abdomen: Soft, nontender, nondistended. Bowel sounds throughout. Extremities: Moves all extremities. The patient has a steady gait. Neuro: Alert and oriented x3. No focal deficits noted. DISCHARGE PLAN: 1. Follow up with Dr. Janelle Robertson on Tuesday. The patient is to call the office for a specific time. 2. The patient is to have followup serial chest x-rays tomorrow Tuesday, , and Tuesday. These have been CC'd to Dr. Juarez as well. 3. Worsening signs and symptoms were reviewed with the patient and when to call her primary care provider or return to the emergency department. TIME SPENT: Approximately 60 minutes was spent on this discharge. JOSE RAMIREZ, CATHERINE [id number]/[facility] #: [id number] ANA
== END 2018-12-05 15:15 | disposition home or self-care (01) ==
LOC: ED 15:47 → MED 21:36
PROVIDERS: ADMIT Internal Medicine; ATTEND Internal Medicine
DX: J95.811 Postprocedural pneumothorax (principal); R04.2 Hemoptysis; I10 Essential (primary) hypertension; J30.2 Other seasonal allergic rhinitis; I48.0 Paroxysmal atrial fibrillation; Z79.82 Long term (current) use of aspirin; Z96.651 Presence of right artificial knee joint; Z66 Do not resuscitate; Z88.2 Allergy status to sulfonamides; K21.9 Gastro-esophageal reflux disease without esophagitis; Z87.891 Personal history of nicotine dependence
CPT/HCPCS: 36415; 71045; 71260; 80053; 83605; 83880; 84484; 85025; 85610; 85730; 93005; 96361; 96374; 99284; A9270-GY; G0378; G8978-GP-CH; G8979-GP-CH; G8980-GP-CH; J1885; Q9967

== ENCOUNTER 2019-02-24 13:40 | Inpatient (IN) | payer MEDICARE, OTHER ==
[2019-02-24] MEDS ORDERED: NS 0.9% 1000 ML** 1,000 ML IV ONE (13:58)
--- NOTE | 2019-02-24 13:58 | ED ---
Neurological HPI - HPI Summary HPI Summary: This patient is an 88 year old F presenting to [facility] accompanied by her with a chief complaint of leg numbness and weakness described as flopping about 30 minutes ago after grocery shopping. Denies falling, dizziness, upper extremity symptoms, and current issues with walking. denies issues with speech and states she seemed normal this morning prior to onset of symptoms. Symptoms are currently improved and almost resolved. PMHx of PA, HTN, a-fib, and neuropathy. Patient additionally reports recent stress about medical care for a nodule found in her lung recently. - History of Current Complaint Chief Complaint: EDNeurologicalDeficit Stated Complaint: I THINK I AM HAVING A STROK PER PT Time Seen by Provider: 02/24/19 13:45 Hx Obtained From: Patient Onset/Duration: Sudden Onset, Started minutes ago, Resolved Onset Severity: Severe Current Severity: Mild Neurological Deficit Location: RLE, LLE Pain Intensity: 0 Character: Weak, Numbness/Tingling Episode Lasting: Seconds/Minutes Alleviating: Spontanious Resolution Associated Signs and Symptoms: Positive: Weakness, Numbness - Additional Pertinent History Primary Care Physician: [id number] - Allergy/Home Medications Allergies/Adverse Reactions: Allergies Allergy/AdvReac Type Severity Reaction Status Date / Time codeine Allergy Vomiting Verified 02/24/19 13:43 latex Allergy Rash Verified 02/24/19 13:43 nitrofurantoin Allergy See Comment Verified 02/24/19 13:43 oxycodone [From Percocet] Allergy Vomiting Verified 02/24/19 13:43 pyridoxine Allergy Vomiting Verified 02/24/19 13:43 Sulfa (Sulfonamide Allergy Rash Verified 02/24/19 13:43 Antibiotics) tramadol Allergy Nausea And Verified 02/24/19 13:43 Vomiting environmental Allergy headache, Uncoded 02/24/19 13:43 stuffy nose PMH/Surg Hx/FS Hx/Imm Hx Endocrine/Hematology History: Reports: Hx Anemia - HX OF Denies: Hx Anticoagulant Therapy - states no, Hx Blood Disorders, Hx Bone Marrow Disease, Hx Diabetes, Hx Systemic Lupus Erythematosus, Hx Sickle Cell Disease, Hx Thyroid Disease, Hx Unexplained Bleeding, Other Endocrine/ Hematological Disorders Cardiovascular History: Reports: Hx Atrial Fibrillation, Hx Hypertension - ON MEDICATION, Hx Myocardial Infarction, Other Cardiovascular Problems/Disorders - afib Denies: Hx Aneurysm, Hx Angina, Hx Angioplasty, Hx Auto Implanted Cardiovert Defib, Hx Cardiac Arrest, Hx Cardiomegaly, Hx Congenital Heart Disease, Hx Congestive Heart Failure, Hx Coronary Artery Disease, Hx Deep Vein Thrombosis, Hx Hypercholesterolemia, Hx Hypotension, Hx Pacemaker/ICD, Hx Peripheral Vascular Disease, Hx Rheumatic Fever, Hx Syncope, Hx Valvular Heart Disease Respiratory History: Reports: Hx Seasonal Allergies - environmental allergies Denies: Hx Asthma, Hx Chronic Bronchitis, Hx Chronic Obstructive Pulmonary Disease (COPD), Hx Cystic Fibrosis, Hx Lung Cancer, Hx Pleural Effusion, Hx Pneumonia, Hx Pulmonary Edema, Hx Pulmonary Embolism, Hx Sleep Apnea, Other Respiratory Problems/Disorders GI History: Reports: Hx Gall Bladder Disease - gall bladder surgery, Hx Gastroesophageal Reflux Disease, Other GI Disorders - acid reflux Denies: Hx Cirrhosis, Hx Crohn's Disease, Hx Diverticulosis, Hx Gastrointestinal Bleed, Hx Hiatal Hernia, Hx Irritable Bowel, Hx Jaundice, Hx Obstructive Bowel, Hx Ileostomy, Hx Pyloric Stenosis, Hx Ulcer History: Reports: Hx Kidney Stones, Other Problems/Disorders - overactive bladder Denies: Hx Acute Renal Failure, Hx Benign Prostatic Hyperplasia, Hx Chronic Renal Failure, Hx Dialysis, Hx Kidney Infection, Hx Renal Disease Musculoskeletal History: Reports: Hx Arthritis, Hx Back Problems - DDD, Hx Osteoporosis, Other Musculoskeletal History - knee replacement Denies: Hx Rheumatoid Arthritis, Hx Bursitis, Hx Congenital Bone Abnormalities, Hx Fibromyalgia, Hx Gout, Hx Orthopedic Injury, Hx Scoliosis, Hx Tendonitis Sensory History: Reports: Hx Cataracts, Hx Contacts or Glasses, Hx Macular Degeneration, 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, Hx Hearing Aid - one, in right ear Denies: Hx Eye Injury, Hx Eye Prosthesis, Hx Glaucoma, Hx Vision Problem, Hx Hearing Problem, Other Sensory Impairments Opthamlomology History: Reports: Hx Cataracts, Hx Contacts or Glasses, Hx Macular Degeneration Denies: Hx Eye Injury, Hx Eye Prosthesis, Hx Glaucoma, Hx Vision Problem, Other Sensory Impairments Psychiatric History: Denies: Hx Panic Disorder, Other Psychiatric Issues/Disorders - Cancer History Cancer Type, Location and Year: skin cancers, basal and squamous Hx Chemotherapy: No Hx Radiation Therapy: No - Surgical History Surgery Procedure, Year, and Place: HYSTERECTOMY,. ABDOMINAL CYST,. CHOLECYSTECTOMY,. LEFT KNEE REPLACEMENT,. Bilateral hip replacement,. ERCP. 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 MOHS ON NOSE REMOVED. DR. WYLIE REPAIR TO NOSE FOR MOHS Hx Anesthesia Reactions: No Infectious Disease History: No Infectious Disease History: Denies: Hx Clostridium Difficile, Hx Hepatitis, Hx Human Immunodeficiency Virus (HIV), Hx of Known/Suspected MRSA, Hx Shingles, Hx Tuberculosis, Hx Known/ Suspected VRE, Hx Known/Suspected VRSA, History Other Infectious Disease, Traveled Outside the [place] in Last 30 Days - Family History Known Family History: Positive: Other - breast cancer Negative: Cardiac Disease, Hypertension, Diabetes - Social History Alcohol Use: Weekly Alcohol Amount: 4 glasses wine per week Substance Use Type: Reports: None Hx Tobacco Use: No Smoking Status (MU): Former Smoker Have You Smoked in the Last Year: No Review of Systems Negative: Fever Positive: Weakness, Numbness All Other Systems Reviewed And Are Negative: Yes Physical Exam - Summary Physical Exam Summary: Appearance: Well-appearing, Well-nourished, lying in bed comfortably Skin: Warm, dry, no obvious rash Eyes: sclera anicteric, no conjunctival pallor ENT: mucous membranes moist, pharynx appears normal Neck: Supple, nontender Respiratory: Clear to auscultation, no signs of respiratory distress Cardiovascular: Normal S1, S2. No murmurs. Normal distal pulses in tibial and radial bilaterally. Abdomen: Soft, nontender, normal active bowel sounds present Musculoskeletal: Normal, Strength/ROM Intact, Motor function in all 4 extremities is normal and symmetric. There is no rigidity or tremor noted. Neurological: A&Ox3, awake and alert, mentation is normal, speech is fluent and appropriate, Level of consciousness nml. The patient is alert and oriented. Cranial nerves are grossly intact. Gaze is conjugate and without nystagmus. Peripheral vision is intact to confrontation. There are no gross sensory abnormalities to light touch. There is no truncal or fine motor ataxia. Gait is normal. Psychiatric: affect is normal, does not appear anxious or depressed Triage Information Reviewed: Yes Vital Signs On Initial Exam: Initial Vitals Temp Pulse Resp BP Pulse Ox 98.4 F 61 16 135/63 96 02/24/19 13:41 02/24/19 13:41 02/24/19 13:41 02/24/19 13:41 02/24/19 13:41 Vital Signs Reviewed: Yes - [place] Coma Scale Best Eye Response: 4 - Spontaneous Best Motor Response: 6 - Obeys Commands Best Verbal Response: 5 - Oriented Coma Scale Total: 15 Diagnostics - Vital Signs Vital Signs Temp Pulse Resp BP Pulse Ox 02/24/19 13:41 98.4 F 61 16 135/63 96 - Laboratory Result Diagrams: 02/24/19 14:06 02/24/19 14:06 Lab Statement: Any lab studies that have been ordered have been reviewed, and results considered in the medical decision making process. - Radiology CXR Radiology Interpretation Completed By: Radiologist Summary of Radiographic Findings: NO ACTIVE CARDIOPULMONARY DISEASE IS NOTED. ED Physician has reviewed this report. - CT Brain CT CT Interpretation Completed By: Radiologist Summary of CT Findings: No intracranial mass or hemorrhage is noted. Mild age- appropriate atrophy is. noted. ED Physician has reviewed this report. - EKG 1434 Cardiac Rate: Bradycardia - 50 BPM EKG Rhythm: Sinus Bradycardia Summary of EKG Findings: RBBB NIH Scale - NIH Scale Level of Consciousness: Alert/Keenly Responsive Ask Patient the Month and His/Her Age: Both Correct Ask Pt to Open/Close Eyes and Title Coordinator/Release Non-Paretic Hand: Both Correctly Best Gaze (Only Horizontal Eye Movement): Normal Visual Field Testing: No Visual Loss Facial Paresis-Pt to Smile & Close Eyes or Grimace Symmetry: Normal/Symmetrical Motor Function - Right Arm: No Drift-Holds 10 Seconds Motor Function - Left Arm: No Drift-Holds 10 Seconds Motor Function - Right Leg: No Drift-Holds 10 Seconds Motor Function - Left Leg: No Drift-Holds 10 Seconds Limb Ataxia-Must be out of Proportion to Weakness Present: Absent Sensory (Use Pinprick to Test Arms/Legs/Trunk/Face): Normal Best Language (Describe Picture, Name Items): No Aphasia Dysarthria (Read Several Words): Normal Extinction and Inattention: No Abnormality Total Score: 0 Course/Dx - Course Course Of Treatment: 88 year old F presenting to [facility] accompanied by her with a chief complaint of bilateral leg numbness and weakness described as flopping about 30 minutes ago after grocery shopping. Denies falling, dizziness, upper extremity symptoms, and current issues with walking. Symptoms are currently improved and almost resolved. EKG reveals sinus bradycardia of 50BPM with RBBB. CXR is negative for cardiopulmonary disease. Brain CT reveals, " No intracranial mass or hemorrhage is noted. Mild age-appropriate atrophy is. noted." Bloodwork and UA obtained. Patient is given IV fluids and 162mg ASA; she reports taking 81mg ASAx2 today. At 1447, case discussed with Dr. Yoder, neurology, who recommends ordering a CTA and admission by hospitalist. Brain CTA is ordered. At 1500, case discussed with Dr. Martinez, hospitalist, who agrees to admission. Results and plan discussed with patient and . Patient is agreeable to plan. - Diagnoses Provider Diagnoses: TIA (transient ischemic attack) - Physician Notifications Discussed Care Of Patient With: Prcahi Martinez - hospitalist Time Discussed With Above Provider: 15:00 Instructed by Provider To: Admit As Inpatient Discharge - Sign-Out/Discharge Documenting (check all that apply): Patient Departure - admit Patient Received Moderate/Deep Sedation with Procedure: No - Discharge Plan Condition: Stable Disposition: ADMITTED TO [facility] - Billing Disposition and Condition Condition: STABLE Disposition: Admitted to [facility] - Attestation Statements Document Initiated by Jericae: Yes Documenting Scribe: Shari Johnson Provider For Whom Mayuri is Documenting (Include Credential): Fab Galvin MD Scribe Attestation: IShari, scribed for Fab Galvin MD on 02/24/19 at 1955. Scribe Documentation Reviewed: Yes Provider Attestation: The documentation as recorded by the Shari baker accurately reflects the service I personally performed and the decisions made by me, Fab Galvin MD Status of Scribe Document: Viewed
[2019-02-24 14:20] LABS: ABS Basophils 0.1 10^3/ul (0-0.2); ABS Eosinophils 0.4 10^3/ul (0-0.6); ABS Lymphocytes 1.3 10^3/ul (1.0-4.8); ABS Monocytes 0.5 10^3/ul (0-0.8); ABS Neutrophils 2.7 10^3/ul (1.5-7.7); Eosinophil % 8.3 %; Hematocrit 38 % (35-47); Hemoglobin 12.4 g/dL (12.0-16.0); Lymphocyte % 26.6 %; Mean Corpuscular HGB Conc 33 g/dL (31-36); Mean Corpuscular Hemoglobin 30 pg (27-31); Mean Corpuscular Volume 91 fL (80-97); Mean Platelet Volume 6.9 fL (7.4-10.4); Platelet Count 216 10^3/uL (150-450); Red Blood Count 4.15 10^6 /uL (3.70-4.87); Red Cell Distribution Width 14 % (10.5-15); White Blood Count 5.1 10^3/uL (3.5-10.8)
[2019-02-24 14:23] LABS: Activated Partial Thrombo Time 31.5 seconds (26.0-36.3); INR 0.88 (0.82-1.09)
[2019-02-24 14:43] LABS: Urine Appearance Clear; Urine Bilirubin Negative (Negative); Urine Blood Negative (Negative); Urine Color Yellow; Urine Glucose Negative (Negative); Urine Ketones Negative (Negative); Urine Nitrite Negative (Negative); Urine Protein Negative (Negative); Urine Specific Gravity 1.025 (1.010-1.030); Urine Urobilinogen Negative (Negative)
[2019-02-24 14:46] LABS: Albumin/Globulin Ratio 1.5 (1-3); BUN/Creatinine Ratio 35.9 (8-20); Calcium 10.3 mg/dL (8.6-10.3); EGFR Non-African American 50.5 (>60); Globulin 2.6 g/dL (2-4); HDL Cholesterol 63.4 mg/dL; Potassium 4.9 mmol/L (3.5-5.0); Total Bilirubin 0.5 mg/dL (0.2-1.0); Total Protein 6.6 g/dL (6.4-8.9)
[2019-02-24] MEDS ORDERED: Aspirin TAB* 325 MG PO ONE ×2 (14:51→15:29)
[2019-02-24] MEDS ORDERED: Iodixanol* (CONTRAST) 320 MG/ML 100 ML SDV IV ONE (15:19)
[2019-02-24] MEDS ORDERED: Aspirin EC TAB* 81 MG TAB.EC ONE (15:30)
[2019-02-24] MEDS ORDERED: Aspirin 81 mg CHEW TAB* 81 MG TAB.CHEW ONE (15:31)
[2019-02-24] MEDS ORDERED: Clopidogrel TAB* 75 MG PO SCH (17:00)
[2019-02-24] MEDS: Atorvastatin* 40 MG TAB PO SCH (17:59)
--- NOTE | 2019-02-24 18:56 | HP ---
CC: Dr. Janelle Robertson * [facility] MEDICINE HISTORY AND PHYSICAL: DATE OF ADMISSION: 02/24/19 PRIMARY CARE PHYSICIAN: Dr. Janelle Robertson. ATTENDING PHYSICIAN: Dr. Prachi Martinez * (dictation provided by Susy Thompson NP). CHIEF COMPLAINT: Right leg weakness with bilateral lower extremity tingling, now resolved. HISTORY OF PRESENT ILLNESS: Ms. Mclaughlin is an 88-year-old female with a past medical history of hypertension, distant history of takotsubo's, report of paroxysmal atrial fibrillation and current workup for suspected lung cancer undertaken at [facility], who presents to the hospital today with concern for heaviness and weakness to her right leg followed by bilateral lower extremity tingling from the knees down, both now resolved. Ms. Mclaughlin states she has been in her normal state of health with no acute complaints. She has been under increased stress as there has been concern that she has a malignant pulmonary nodule. For this, she went to [place] on Tuesday of this past week and met with the team there with plans for follow up over the phone this coming Tuesday. The patient states she was out at [facility] today and was waiting in the parking lot when she suddenly felt that her right leg was heavy and not moving properly. She felt that may be something hit her leg. This resolved after less than 5 minutes; however, after that she had bilateral lower extremity tingling that ranged from the knee down. This continued until about the time that she came to the emergency room which was shortly thereafter and has now resolved. The patient states that other than this she has been in her normal state of health. She has had no lightheadedness, dizziness, chest pain, shortness of breath, nausea, vomiting, diarrhea, abdominal pain. She has been having normal formed bowel movements and no issues with urination. She has no back pain. In the emergency room, Ms. Mclaughlin had a CT of the brain, which showed no acute abnormality. She had a chest x-ray, which showed no acute abnormality. She had a head and neck CTA, which showed no acute abnormality. She had labs, which were unremarkable including a normal urinalysis. She had vital signs that were stable. Ms. Mclaughlin has a history of hypertension controlled with lisinopril. She states that to her knowledge in the past her lipids have been well controlled. She has no history of diabetes. In terms of the paroxysmal atrial fibrillation , she states "I never have this." In the past, she has felt a fluttering in her chest when she has had AFib and states she has not had that for quite some time. PAST MEDICAL HISTORY: 1. Paroxysmal atrial fibrillation. 2. History of takotsubo's. 3. History of hypertension. 4. History of pulmonary nodule with concern for malignancy, currently worked up at [facility]. 5. Hypothyroidism. 6. History of lichen sclerosus. 7. History of asthma. 8. Osteoarthritis. 9. GERD. 10. Low back pain with scoliosis. 11. History of a humerus dislocation. 12. Hearing loss. 13. History of skin cancers. 14. Chronic right shoulder pain with rotator cuff tear. 15. Allergic rhinitis. 16. Peripheral neuropathy. 17. History of BPPV. PAST SURGICAL HISTORY: 1. Cholecystectomy. 2. Tonsillectomy and adenoidectomy. 3. Total abdominal hysterectomy. 4. Joint replacements. MEDICATIONS: 1. Lisinopril 10 mg p.o. daily. 2. Levothyroxine 50 mcg p.o. daily. 3. Aspirin 182 mg p.o. daily. 4. Premarin vaginal cream 1 application vaginally twice weekly. 5. [place]-3 fatty acids with fish oil 1 tab p.o. daily. 6. Multivitamin with minerals 1 cap p.o. daily. 7. Glucosamine 1 tab p.o. daily. 8. Cranberry 1 tab p.o. daily. Please note, the patient is no longer on clobetasol, though she has a history of lichen sclerosus per the report. FAMILY HISTORY: The patient reports her father related to heart attack suddenly in his 70s. Mother had issues with heart troubles. She has no siblings. SOCIAL HISTORY: She is a former smoker. She quit in about 1975. She drinks alcohol occasionally. She states that her children are her healthcare proxies. REVIEW OF SYSTEMS: A 14-point review of systems was completed with Ms. Mclaughlin and all those not mentioned above were negative. PHYSICAL EXAMINATION GENERAL: Ms. Mclaughlin is lying in the bed with the family at the bedside. She is in no acute distress. VITAL SIGNS: Temperature 98.4, pulse rate 52, respiratory rate 16, O2 saturation 98% on room air, blood pressure 155/69. LUNGS: Clear to auscultation bilaterally with no accessory muscle use and good aeration. HEART: S1, S2. No murmur, rub, or gallop and regular. ABDOMEN: Soft, nontender with bowel sounds positive x4. EXTREMITIES: No cyanosis. No edema. NEURO: She is alert. She is oriented x3. She moves all extremities equally. There is no facial asymmetry or focal weakness. Extraocular movements are intact. Sensation is intact to bilateral lower extremities. SKIN: Intact. DIAGNOSTIC STUDIES/LAB DATA: Sodium 140, potassium 4.9, chloride 108, serum bicarbonate 26, BUN 37, creatinine 1.03, glucose 119, lactic acid 1.0. Troponin 0.00. Triglycerides 143, total cholesterol 212, LDL 120, HDL 63.4. WBC 5.1, hemoglobin 12.4, hematocrit 38, platelet count 216. Urine shows no evidence of infection. CT brain shows "no intracranial mass or hemorrhage is noted. Mild age appropriate atrophy is noted." Chest x-ray: "No active cardiopulmonary disease is noted." The EKG shows sinus bradycardia with a heart rate of around 55 and a right bundle branch block. The head CTA shows "minimal atherosclerosis at the origin of the left internal carotid artery. No evidence of carotid artery dissection or stenosis is noted. No intracranial aneurysm, dilatation, or branch occlusion is identified." ASSESSMENT AND PLAN: Ms. cMlaughlin is an 88-year-old female with a past medical history of paroxysmal atrial fibrillation, history of takotsubo's cardiomyopathy , hypertension, hypothyroidism and current workup for possible malignant lung nodule, who presents to the hospital today after a self-limited episode of right lower extremity heaviness or weakness followed by tingling to the extremities, now resolved. Our plans are for observation in the hospital for the followin. Transient ischemic attack. Concern is that the patient has had a transient ischemic attack. Her CT and head and neck CTA are both negative. Plan for brain MRI. The patient's risk factors include history of paroxysmal atrial fibrillation. The patient states she does not feel that she is in atrial fibrillation, but of course this could occur without her knowledge. Plan to monitor on telemetry. Plan to obtain an echocardiogram. The patient has a history of hypertension, on lisinopril and plan to continue. The patient is not on a statin therapy, but based on this transient ischemic attack and an LDL of 120, plan to start to now. She has no history of diabetes and her glucose today was 119 this afternoon. We will add on hemoglobin A1c for the morning. I have spoken with Dr. Yoder and she will be seeing the patient in consultation. She recommends that Plavix be added for suspicion of transient ischemic attack in a patient already on aspirin therapy. The patient will have neurological checks q.4 hours. 2. Hypertension. Continue lisinopril. 3. Hypothyroidism. Continue levothyroxine. 4. History of lichen sclerosus. The patient counseled that she should have a pelvic exam routinely and to follow up with her primary care physician. 5. DVT prophylaxis with heparin subcu. 6. Code status is DNR. TIME SPENT: Approximately 60 minutes was spent on the admission of this patient , more than half the time spent with the patient at the bedside reviewing the events leading up to this hospitalization, performing the physical examination, and reviewing the plan of care. SUSY THOMPSON NP [id number]/[facility] #: [id number] ANA
--- NOTE | 2019-02-24 19:29 | CONS ---
CC: Dr. Janelle Robertson CONSULTATION REPORT: DATE OF CONSULT: 02/24/19 REQUESTING PHYSICIAN: Dr. Fab Galvin. REASON FOR CONSULT: Possible TIA/stroke. Time of onset was between 1 to 1:30 p.m. NIH Stroke Scale at the time of consultation was 0. HISTORY OF PRESENT ILLNESS: Ms. Shirley Mclaughlin is an 88-year-old woman with a history of hypertension and takotsubo's cardiomyopathy in 2006, who was shopping at [employer] this morning and developed acute onset of neurologic symptoms. She was lifting her groceries into the car when she noticed her right leg was disjointed and wobbly. This was very short in duration. She then developed tingling that went all the way up to her knees on both legs. This occurs in the setting of a known neuropathy with numbness from the feet to mid biswas. The tingling was more intense in larger distribution. The tingling was still occurring when she got to the hospital and has disappeared during the time that she is here. When the symptoms first started, she felt like her body was not right. She wanted to dismiss the symptoms, but realized it could be possible stroke and therefore came to the hospital. She did drive herself to the hospital with her in the car and felt as if she could feel the pedals and coordinate well. There was no change in vision, no change in speech. No chest pain, chest pressure, palpitations, shortness of breath, numbness or weakness of arms, difficulty with coordination. PAST MEDICAL HISTORY: Includes hypertension, takotsubo's cardiomyopathy in 2006 with brief paroxysmal atrial fibrillation. She is seeing Dr. Tucker and her chart indicates previous mitral and aortic disease. She has a history of hypothyroidism; torn right rotator cuff; and more recently has been worked up for pulmonary nodule, which she had a biopsy in November, complicated by hemoptysis and pneumothorax. She is being seen at [facility] and saw the team on Tuesday and plans to get a call on Tuesday coordinating further evaluation and biopsy with possible PET scan. In 2000, she had acute left ear hearing loss secondary to virus. PAST SURGICAL HISTORY: Previous surgeries include left hip replacement in 2015 , right hip replacement in 2012, left knee replacement in 2008, ERCP with bile duct stones in 2011, hysterectomy with bilateral salpingo-oophorectomy in 1984, cholecystectomy in 2001, abdominal cyst removal in 1986. CURRENT MEDICATIONS: Include: 1. Lisinopril 10 mg p.o. daily. 2. Levothyroxine 50 mcg p.o. daily. 3. AREDS 2 tablets p.o. daily. 4. Aspirin 81 mg p.o. daily. 5. Naproxen 220 mg 2 tablets p.o. daily. 6. Esomeprazole 40 mg p.o. daily. 7. Fish oil p.o. daily. 8. Senior vitamins 1 p.o. daily. 9. Cranberry tablet p.o. daily. 10. Premarin cream vaginal 2 times a week. ALLERGIES: Include CODEINE, LATEX, NITROFURANTOIN, OXYCODONE, and PYRIDOXINE. FAMILY HISTORY: Noncontributory at this time. SOCIAL HISTORY: She lives with her at [facility]. She smoked in the past, but does not smoke at this point and does not drink alcohol. REVIEW OF SYSTEMS: There was no change in vision, change in speech, numbness or weakness of her arms, chest pain, chest pressure, palpitations, shortness of breath, change in bowel or bladder symptoms. She does have urgency at baseline and does wear pads for incontinence. There has been no change in mood, recent rash, fever, weight loss, drenching night sweats, or high fevers for unknown reason. PHYSICAL EXAM: Her most recent vitals include a temperature of 97.0 degrees Fahrenheit, heart rate was 53 and regular, respiratory rate 16, saturation 100% , and blood pressure was 146/63. She had a regular cardiac rhythm. Her lungs were clear to auscultation. There was no carotid bruit. There was no peripheral edema. Her peripheral pulses were intact. She was awake, alert, oriented to time, place, and person, had normal language function and adequate fund of knowledge. She had full extraocular movements with no nystagmus, full rose to confrontation. Her pupils were equal and responsive to light. Her fundi was flat on the right, hard to visualize on the left. She had equal facial expression, sensation, and hearing. Palate was upgoing. Tongue was midline. Sternocleidomastoid and trapezius were 5/5 in strength. There was normal bulk and tone. No pronator drift. She had good strength in the upper and lower extremities with the exception of some protection of the right shoulder with decreased range of movement in the setting of rotator cuff injury. She had full strength in her legs. There were normal kzkwne-nv-tetb and qlgr-kc-cdni movements. Vibration sensation was absent at the large toes, decreased to the ankles, decreased by 5 seconds at the distal interphalangeal joint of the second finger of the left hand. She had no asymmetries to pinprick , cold, or light touch. Sharp sensation was decreased in gradient to mid biswas bilaterally. Her reflexes were 2+ in the upper extremities, 1+ at the knees, absent at the ankles. Toes were flexor response. Her Romberg was wobbly. She could get on her heels and her toes. She had increased stance, but did not favor one leg versus the other and was able to walk independently. DIAGNOSTIC STUDIES/LAB DATA: CBC showed normal white count, hemoglobin, hematocrit and platelets, mean platelet volume was slightly low at 6.9. Her INR was 0.88. Her complete metabolic panel showed an elevated BUN at 37, creatinine was 1.03, her glucose was 119, BUN and creatinine ratio was 35.9. She had normal AST, ALT, alk phos. Troponin was 0. Her total cholesterol was 212, triglycerides were 143, LDL 120, HDL 63.4. Urinalysis was essentially negative. CTA of the brain and neck showed minimal atherosclerotic disease at the origin of the left ICA. CT of the brain showed age appropriate atrophy. These films were reviewed directly. Chest x-ray showed no active cardiopulmonary disease. IMPRESSION AND PLAN: An 88-year-old woman with a history of hypertension and takotsubo's cardiomyopathy in 2006, now with acute onset of right leg wobbly symptom that was very short followed by tingling up to the knees bilaterally in the setting of known cardiomyopathy, now resolved symptoms in total including the numbness lasted hours. Her exam is nonfocal with an NIH Stroke Scale of 0 at this time. Differential diagnosis does include transient ischemic attack. Posterior circulation is a possibility given bilateral symptoms. No significant posterior circulation disease was noted on CTA of the brain and neck. Differential diagnosis also includes the possibility that she had right leg dysfunction followed by increased tingling from her known peripheral neuropathy confusing the clinical picture. Again, transient ischemic attack is in the differential, including anterior circulation. No other clear mechanical cause for the right leg weakness was noted. She denies any history of back pain with radicular symptoms. She will be admitted to telemetry, have an echocardiogram with bubble study to look for status of her heart and cardiomyopathy and possible cardioembolic source. I will also suggest checking MRI of the brain for an injury that took place which no longer is apparent by subjective or objective evaluation. We will check fasting lipid profile, hemoglobin A1c. For now, we will continue on aspirin. We considered double antiplatelet therapy; however, in light of her potential upcoming biopsy and unclear etiology for the event, we will hold off at this time and continue further workup. She knows that she should notify staff immediately if there are any increased or new symptoms. At this point, she is asymptomatic. Courtesy call was made to try to reach her daughter, Janet, without success as the mailbox was full. I reached her son, Yuan and discussed differential diagnosis and workup at this time. [id number]/[facility] #: [id number] ANA
[2019-02-24] MEDS: Heparin VIAL(*) 5000 UNITS/ML VIAL (FIVE THOUSAND) SUBCUT SCH (22:25)
[2019-02-25] MEDS: Levothyroxine TAB* 50 MCG TAB PO SCH (05:46)
[2019-02-25] MEDS: Heparin VIAL(*) 5000 UNITS/ML VIAL (FIVE THOUSAND) SUBCUT SCH ×3 (05:46→21:50)
[2019-02-25 06:56] LABS: HDL Cholesterol 53.2 mg/dL
[2019-02-25] MEDS: Aspirin 81 mg CHEW TAB* 81 MG TAB.CHEW PO SCH (07:34)
[2019-02-25] MEDS: Lisinopril TAB* 5 MG PO SCH (07:34)
--- NOTE | 2019-02-25 09:08 | PN ---
Subjective - Subjective Reason for Note: Progress Note History: I obtained Shirley Morales's presentation from the patient, Susy Thompson NP's admitting H and P and Dr. Dona Yoder's neurological consultation note. In short, she was in the [employer] parking lot loading groceries into the trunk when she felt as though she dropped something on her right foot. She felt it was wobbling, but she was standing on it. She was able to walk from the tail gate to the front of the car. This was transient and was not associated with any palpitations. Afterwards she had tingling in both lower legs. This disappeared when she arrived in the ED. She has a history of Takotsubo cardiomyopathy and atrial fibrillation. She has felt fine overnight. Telemetry shows sinus bradycardia. She has had no chest pain, dyspnea, headache, change of vision. Active Problems: Active Problems TIA (transient ischemic attack) (Acute) G45.9 DVT prophylaxis (Chronic) [id number] SCDS Hypertension (Chronic) I10 Stable, continue home meds Hypothyroid (Chronic) E03.9 Continue home meds Peripheral neuropathy (Chronic) G62.9 Pre-diabetes (Chronic) R73.03 Pulmonary nodule (Chronic) R91.1 Right shoulder injury (Chronic) S49.91XA Current Medications: Current Medications Aspirin (Aspirin 81 Mg Chew Tab*) 162 mg PO DAILY [facility] Last Admin: 02/25/19 07:34 Dose: 162 mg Atorvastatin Calcium (Lipitor*) 40 mg PO 1700 [facility] Last Admin: 02/24/19 17:59 Dose: 40 mg Heparin Sodium (Porcine) (Heparin Vial(*)) 5,000 units SUBCUT Q8HR [facility] Last Admin: 02/25/19 05:46 Dose: 5,000 units Levothyroxine Sodium (Synthroid Tab*) 50 mcg PO 0600 [facility] Last Admin: 02/25/19 05:46 Dose: 50 mcg Lisinopril (Prinivil Tab*) 10 mg PO DAILY [facility] Last Admin: 02/25/19 07:34 Dose: 10 mg Home Medications: Home Medications Medication Instructions Recorded Confirmed Type Levothyroxine Sodium [Levoxyl] 50 mcg PO DAILY 08/31/12 02/24/19 History Lisinopril TAB* [Prinivil TAB 5 10 mg PO DAILY 08/31/12 02/24/19 History MG*] Multiple Vitamins W/ Minerals 1 cap PO DAILY 08/31/12 02/24/19 History [Womens Multi] Glucosamine Sulfate Dipot Chlr 1 tab PO DAILY 08/10/18 02/24/19 History [Glucosamine] [place]-3 Fatty Acids/Fish Oil [Fish 1 tab PO DAILY 08/10/18 02/24/19 History Oil 1,000 mg Capsule] Cranberry 1 tab PO DAILY 11/27/18 02/24/19 History Premarin VAG CREAM* 1 applic VAGINAL SEE INSTRUCTIONS 11/27/18 02/24/19 History Aspirin 81 mg CHEW TAB* [Aspirin 162 mg PO DAILY 02/24/19 02/24/19 History Low Dose TAB*] Allergies: Allergies Allergy/AdvReac Type Severity Reaction Status Date / Time codeine Allergy Vomiting Verified 02/24/19 13:43 latex Allergy Rash Verified 02/24/19 13:43 nitrofurantoin Allergy See Comment Verified 02/24/19 13:43 oxycodone [From Percocet] Allergy Vomiting Verified 02/24/19 13:43 pyridoxine Allergy Vomiting Verified 02/24/19 13:43 Sulfa (Sulfonamide Allergy Rash Verified 02/24/19 13:43 Antibiotics) tramadol Allergy Nausea And Verified 02/24/19 13:43 Vomiting environmental Allergy headache, Uncoded 02/24/19 13:43 stuffy nose Objective - Vital Signs Vital Signs: Vital Signs 02/24/19 02/24/19 02/24/19 13:41 14:00 14:08 Temperature 98.4 F Pulse Rate 61 58 Respiratory 16 24 Rate Blood Pressure 135/63 (mmHg) O2 Sat by Pulse 96 95 92 Oximetry 02/24/19 02/24/19 02/24/19 14:28 14:48 14:58 Temperature Pulse Rate 52 49 56 Respiratory 17 16 21 Rate Blood Pressure 111/58 111/58 142/67 (mmHg) O2 Sat by Pulse 95 97 98 Oximetry 02/24/19 02/24/19 02/24/19 15:00 15:28 15:58 Temperature Pulse Rate 52 54 Respiratory 21 21 15 Rate Blood Pressure 138/66 138/64 (mmHg) O2 Sat by Pulse 96 98 Oximetry 02/24/19 02/24/19 02/24/19 16:00 16:28 17:29 Temperature 98.2 F Pulse Rate 53 53 54 Respiratory 20 16 16 Rate Blood Pressure 155/69 128/64 (mmHg) O2 Sat by Pulse 97 98 97 Oximetry 02/24/19 02/24/19 02/24/19 17:49 19:30 20:00 Temperature 97.0 F 97.1 F Pulse Rate 53 50 Respiratory 16 18 Rate Blood Pressure 146/63 147/59 (mmHg) O2 Sat by Pulse 100 98 98 Oximetry 02/24/19 02/25/19 02/25/19 23:33 03:17 07:14 Temperature 98.2 F 97.5 F 97.9 F Pulse Rate 57 46 48 Respiratory 18 20 16 Rate Blood Pressure 105/73 119/47 119/55 (mmHg) O2 Sat by Pulse 95 97 97 Oximetry - Intake and Output Intake and Output: Intake & Output 02/22/19 02/23/19 02/24/19 02/25/19 11:59 11:59 11:59 11:59 Intake Total 240 Output Total 0 Balance 240 Weight 178 lb 1.6 oz Intake: Oral 240 Output: Urine 0 ADLs: Meal Record Start: 02/24/19 16: 29 Freq: DAILY@0900,1400,1800 Status: Active Protocol: Created 02/24/19 16:29 System (Rec: 02/24/19 16:29 System [id number]) Document 02/24/19 20:12 [id number] (Rec: 02/24/19 20:12 [id number]) Intake and Output Start: 02/24/19 16: 29 Freq: DAILY@0600,1400,2200 Status: Active Protocol: Created 02/24/19 16:29 System (Rec: 02/24/19 16:29 System [id number]) Document 02/24/19 21:59 [id number] (Rec: 02/24/19 21:59 [id number]) Document 02/25/19 05:53 [id number] (Rec: 02/25/19 05:54 [id number]) - Physical Exam General Physical Exam Comment: Warm and well perfused. She is in no acute distress. She is able to have an insightful conversation. General: No Cyanosis, No Anemia, No Jaundice, No Lymphadenopathy, No Clubbing Skin: Normal: Rash -: No Goiter Endocrine: No Acromegaly, No Vitiligo, No Flushing, No Acanthosis nigricans, No Violaceious striae, No Tyshawn Syndrome, No Buccal pigmenatation Lungs and Chest: Yes: Chest Expansion Full, Chest Expansion Symetrica, Percussion Note Resonant, Vessicular Breath Sounds. No: Crackles, Wheezes Heart Rate and Rhythm: Bradycardia JVP: Not Elevated Additional Cardiovascular: Yes: Normal Heart Sounds. No: Heart Murmur, Carotid Bruits, Pedal Edema Abdominal Exam: Yes: Soft, Bowel Sounds Present. No: Distention, Hepatomegaly, Abdominal Tenderness - Extremities Posterior Tibial Pulse: Bilateral Normal Dorsalis Pedis Pulses: Bilateral Normal Cranial Nerves II-XII Intact: Yes Limbs: Normal Power - right shoulder pain precludes right arm power test, Normal Tone, Normal Coordination - finger nose/heel biswas Reflexes: Bilateral: Plantar - downgoing - Neuro Orientation: A/O x3 Psychiatric: Normal Speech: Normal Results - Results Lab Results: Laboratory Results - last 24 hr 02/24/19 02/24/19 02/24/19 14:06 14:06 14:06 WBC 5.1 RBC 4.15 Hgb 12.4 Hct 38 MCV 91 MCH 30 MCHC 33 RDW 14 Plt Count 216 MPV 6.9 L Neut % (Auto) 53.6 Lymph % (Auto) 26.6 Dixon % (Auto) 10.1 Eos % (Auto) 8.3 Baso % (Auto) 1.4 Absolute Neuts (auto) 2.7 Absolute Lymphs (auto) 1.3 Absolute Monos (auto) 0.5 Absolute Eos (auto) 0.4 Absolute Basos (auto) 0.1 Absolute Nucleated RBC 0.0 Nucleated RBC % 0.0 INR (Anticoag Therapy) 0.88 APTT 31.5 Sodium 140 Potassium 4.9 Chloride 108 Carbon Dioxide 26 Anion Gap 6 BUN 37 H Creatinine 1.03 H Est GFR ( Amer) 61.0 Est GFR (Non-Af Amer) 50.5 BUN/Creatinine Ratio 35.9 H Glucose 119 H Hemoglobin A1c Lactic Acid Calcium 10.3 Total Bilirubin 0.50 AST 16 ALT 13 Alkaline Phosphatase 80 Troponin I 0.00 Total Protein 6.6 Albumin 4.0 Globulin 2.6 Albumin/Globulin Ratio 1.5 Triglycerides 143 Cholesterol 212 LDL Cholesterol 120 HDL Cholesterol 63.4 Urine Color Urine Appearance Urine pH Ur Specific [place] Urine Protein Urine Ketones Urine Blood Urine Nitrate Urine Bilirubin Urine Urobilinogen Ur Leukocyte Esterase Urine Glucose Urine Ascorbic Acid 02/24/19 02/24/19 02/25/19 14:06 14:31 06:00 WBC RBC Hgb Hct MCV MCH MCHC RDW Plt Count MPV Neut % (Auto) Lymph % (Auto) Dixon % (Auto) Eos % (Auto) Baso % (Auto) Absolute Neuts (auto) Absolute Lymphs (auto) Absolute Monos (auto) Absolute Eos (auto) Absolute Basos (auto) Absolute Nucleated RBC Nucleated RBC % INR (Anticoag Therapy) APTT Sodium Potassium Chloride Carbon Dioxide Anion Gap BUN Creatinine Est GFR ( Amer) Est GFR (Non-Af Amer) BUN/Creatinine Ratio Glucose Hemoglobin A1c 5.8 H Lactic Acid 1.0 Calcium Total Bilirubin AST ALT Alkaline Phosphatase Troponin I Total Protein Albumin Globulin Albumin/Globulin Ratio Triglycerides Cholesterol LDL Cholesterol HDL Cholesterol Urine Color Yellow Urine Appearance Clear Urine pH 5.0 Ur Specific [place] 1.025 Urine Protein Negative Urine Ketones Negative Urine Blood Negative Urine Nitrate Negative Urine Bilirubin Negative Urine Urobilinogen Negative Ur Leukocyte Esterase Negative Urine Glucose Negative Urine Ascorbic Acid * A 02/25/19 06:00 WBC RBC Hgb Hct MCV MCH MCHC RDW Plt Count MPV Neut % (Auto) Lymph % (Auto) Dixon % (Auto) Eos % (Auto) Baso % (Auto) Absolute Neuts (auto) Absolute Lymphs (auto) Absolute Monos (auto) Absolute Eos (auto) Absolute Basos (auto) Absolute Nucleated RBC Nucleated RBC % INR (Anticoag Therapy) APTT Sodium Potassium Chloride Carbon Dioxide Anion Gap BUN Creatinine Est GFR ( Amer) Est GFR (Non-Af Amer) BUN/Creatinine Ratio Glucose Hemoglobin A1c Lactic Acid Calcium Total Bilirubin AST ALT Alkaline Phosphatase Troponin I Total Protein Albumin Globulin Albumin/Globulin Ratio Triglycerides 108 Cholesterol 186 LDL Cholesterol 111 HDL Cholesterol 53.2 Urine Color Urine Appearance Urine pH Ur Specific [place] Urine Protein Urine Ketones Urine Blood Urine Nitrate Urine Bilirubin Urine Urobilinogen Ur Leukocyte Esterase Urine Glucose Urine Ascorbic Acid Radiology Results: Patient Name: SHIRLEY MORALES Medical Record#: [id number] Ordering Physician: Fab Galvin MD Acct.#: [id number] : 1930 Age: 88 Sex: F Location: EMERGENCY DEPARTMENT Exam Date: 02/24/19 135 ADM Status: REG ER Order Information: CT BRAIN WO Accession Number: [id number] CPT: 20433 Indication: Neurologic changes. CT of the brain performed without IV contrast. Ventricular structures are midline. No midline shift is noted. The extra-axial spaces are unremarkable. There is no evidence of intracranial mass or hemorrhage. No other high or low density lesions are identified. Mastoid air cells and paranasal sinuses are unremarkable. Overall no changes noted since February 01, 2017. IMPRESSION: No intracranial mass or hemorrhage is noted. Mild age-appropriate atrophy is noted. <Electronically signed by Ariana Mann MD in OV> 02/24/191428 Dictated By: Ariana Mann MD Dictated Date/Time: 02/24/191428 Transcribed Date/Time: 02/24/191428 Copy to: Patient Name: SHIRLEY MORALES Medical Record#: [id number] Ordering Physician: Fab Galvin MD Acct.#: [id number] : 1930 Age: 88 Sex: F Location: EMERGENCY DEPARTMENT Exam Date: 02/24/191449 ADM Status: REG ER Order Information: CTA HEAD/NECK Accession Number: [id number] CPT: 05740 CPT II: CPT II Codes: 3100F INDICATION: Transient leg weakness and paresthesias. Contrast: Administered 80.3 ml of VISAPAQUE 320 mg/ml CTA of the neck and head performed after IV contrast illustration. Coronal and sagittal reconstructed The origins of the great vessels are unremarkable common origin of the left common carotid artery and innominate artery. The common carotid arteries bilaterally are patent without evidence of atherosclerosis. The right internal carotid artery demonstrates no significant plaque. The left internal carotid artery origin demonstrates minimal plaque at its origin. No stenosis is neither of the internal normal caliber with no evidence of carotid artery dissection. The vertebral arteries and basilar arteries demonstrates a dominant left vertebral artery. No evidence of vertebral artery dissection is noted. The origins of the vertebral arteries are unremarkable. Intracranial vessels demonstrate no evidence of branch occlusion. Intracranial carotid arteries demonstrates normal bifurcation. Anterior and middle cerebral arteries are unremarkable. No aneurysmal dilatation is identified. The posterior cerebral arteries are grossly unremarkable There is central and cortical atrophy noted. The right upper lobe airspace disease adjacent to the fissure is again noted and is not significantly changed from prior chest CT. No significant adenopathy is noted. No prevertebral soft tissue swelling is noted. Salivary glands are grossly unremarkable. IMPRESSION: Minimal atherosclerosis at the origin of the left internal carotid artery. No evidence of carotid artery dissection or stenosis is noted. No intracranial aneurysmal dilatation or branch occlusion is identified. <Electronically signed by Ariana Mann MD in [place]> 02/24/19 1617 This report is only to be considered final once signed by the Provider(s) as displayed in the "<Electronically Signed by >" field (s). Absence of a signature indicates the report is in a draft status and still needs to be finalized. In the event this document was created by someone other than the signing Provider, the individual initiating the document will be listed in the "Entered by:" or "Dictated by:" rose. 1 of 2 EKG Report: EKG - Inspected - from 02/24/19 14:34 Rate 50 MS 177 QTc 454 QRS axis 26. Sinus bradycardia, RBBB Assessment - Problem List Assessment: Patient Problems TIA (transient ischemic attack) (Acute) DVT prophylaxis (Chronic) Hypertension (Chronic) Hypothyroid (Chronic) Peripheral neuropathy (Chronic) Pre-diabetes (Chronic) Pulmonary nodule (Chronic) Right shoulder injury (Chronic) DNR (do not resuscitate) (Acute) Plan: TIA (transient ischemic attack) (Acute) I spoke with Dr. Dona Yoder - she is highly suspicious this acute episode involving her right leg represents a TIA. We are awaiting an MRI brain to rule out signs of a small CVA, a transthoracic echocardiogram and finally further monitoring to see if she has occult atrial fibrillation (or even heart block). DVT prophylaxis (Chronic) Pulmonary nodule - this is being evaluated at [facility]. Hypertension (Chronic) Her BP is well controlled Hypothyroid (Chronic) 04/17/18 her TSH was 1.92. Given her bradycardia, I will recheck this. Peripheral neuropathy (Chronic) The underlying cause is unclear to me. Pre-diabetes (Chronic) Her A1c 5.8% - she has no history of T2D Right shoulder injury (Chronic) This limits her shoulder movement DNR (do not resuscitate) (Acute) She requires further hospital stay to prevent stroke and investigate this episode in more detail. Dr. Yoder thinks we shouldn't change any of her mediation right now until we have further results of investigations.
--- NOTE | 2019-02-25 13:13 | PN ---
Progress Note - Progress Note Date of Service: 02/25/19 Note: HPI: No new symptoms over night. Up and walking. Denies repeat leg weakness, or any new numbness, weakness, change in vision, palpitations. MEDICATIONS: Aspirin (Aspirin 81 Mg Chew Tab*) 162 mg PO DAILY [facility] Last Admin: 02/25/19 07:34 Dose: 162 mg Atorvastatin Calcium (Lipitor*) 40 mg PO 1700 [facility] Last Admin: 02/24/19 17:59 Dose: 40 mg Heparin Sodium (Porcine) (Heparin Vial(*)) 5,000 units SUBCUT Q8HR [facility] Last Admin: 02/25/19 05:46 Dose: 5,000 units Levothyroxine Sodium (Synthroid Tab*) 50 mcg PO 0600 [facility] Last Admin: 02/25/19 05:46 Dose: 50 mcg Lisinopril (Prinivil Tab*) 10 mg PO DAILY [facility] Last Admin: 02/25/19 07:34 Dose: 10 mg EXAMINATION: Vital Signs 02/24/19 02/24/19 02/24/19 13:41 14:00 14:08 Temperature 98.4 F Pulse Rate 61 58 Respiratory 16 24 Rate Blood Pressure 135/63 (mmHg) O2 Sat by Pulse 96 95 92 Oximetry 02/24/19 02/24/19 02/24/19 14:28 14:48 14:58 Temperature Pulse Rate 52 49 56 Respiratory 17 16 21 Rate Blood Pressure 111/58 111/58 142/67 (mmHg) O2 Sat by Pulse 95 97 98 Oximetry 02/24/19 02/24/19 02/24/19 15:00 15:28 15:58 Temperature Pulse Rate 52 54 Respiratory 21 21 15 Rate Blood Pressure 138/66 138/64 (mmHg) O2 Sat by Pulse 96 98 Oximetry 02/24/19 02/24/19 02/24/19 16:00 16:28 17:29 Temperature 98.2 F Pulse Rate 53 53 54 Respiratory 20 16 16 Rate Blood Pressure 155/69 128/64 (mmHg) O2 Sat by Pulse 97 98 97 Oximetry 02/24/19 02/24/19 02/24/19 17:49 19:30 20:00 Temperature 97.0 F 97.1 F Pulse Rate 53 50 Respiratory 16 18 Rate Blood Pressure 146/63 147/59 (mmHg) O2 Sat by Pulse 100 98 98 Oximetry 0502/25/19 02/25/19 23:33 03:17 07:14 Temperature 98.2 F 97.5 F 97.9 F Pulse Rate 57 46 48 Respiratory 18 20 16 Rate Blood Pressure 105/73 119/47 119/55 (mmHg) O2 Sat by Pulse 95 97 97 Oximetry 02/25/19 11:30 Temperature 97.9 F Pulse Rate 50 Respiratory 20 Rate Blood Pressure 119/51 (mmHg) O2 Sat by Pulse 100 Oximetry Cardiac rhythm was regular. Lungs clear to auscultation. No carotid bruit. Full extraocular movements, full rose to confrontation. Facial expression and sensation were symmetric. Palate was upgoing, tongue was midline. There was no dysarthria. There was no pronator drift, with full strength in arms and legs, and no dysmetria in her arms and legs. She had been up and down to the bathroom without difficulty. DATA: Laboratory Results - last 24 hr 02/24/19 02/24/19 02/24/19 14:06 14:06 14:06 WBC 5.1 RBC 4.15 Hgb 12.4 Hct 38 MCV 91 MCH 30 MCHC 33 RDW 14 Plt Count 216 MPV 6.9 L Neut % (Auto) 53.6 Lymph % (Auto) 26.6 [place] % (Auto) 10.1 Eos % (Auto) 8.3 Baso % (Auto) 1.4 Absolute Neuts (auto) 2.7 Absolute Lymphs (auto) 1.3 Absolute Monos (auto) 0.5 Absolute Eos (auto) 0.4 Absolute Basos (auto) 0.1 Absolute Nucleated RBC 0.0 Nucleated RBC % 0.0 INR (Anticoag Therapy) 0.88 APTT 31.5 Sodium 140 Potassium 4.9 Chloride 108 Carbon Dioxide 26 Anion Gap 6 BUN 37 H Creatinine 1.03 H Est GFR ( Amer) 61.0 Est GFR (Non-Af Amer) 50.5 BUN/Creatinine Ratio 35.9 H Glucose 119 H Hemoglobin A1c Lactic Acid Calcium 10.3 Total Bilirubin 0.50 AST 16 ALT 13 Alkaline Phosphatase 80 Troponin I 0.00 Total Protein 6.6 Albumin 4.0 Globulin 2.6 Albumin/Globulin Ratio 1.5 Triglycerides 143 Cholesterol 212 LDL Cholesterol 120 HDL Cholesterol 63.4 Urine Color Urine Appearance Urine pH Ur Specific Reynolds Urine Protein Urine Ketones Urine Blood Urine Nitrate Urine Bilirubin Urine Urobilinogen Ur Leukocyte Esterase Urine Glucose Urine Ascorbic Acid 02/24/19 02/24/19 02/25/19 14:06 14:31 06:00 WBC RBC Hgb Hct MCV MCH MCHC RDW Plt Count MPV Neut % (Auto) Lymph % (Auto) [place] % (Auto) Eos % (Auto) Baso % (Auto) Absolute Neuts (auto) Absolute Lymphs (auto) Absolute Monos (auto) Absolute Eos (auto) Absolute Basos (auto) Absolute Nucleated RBC Nucleated RBC % INR (Anticoag Therapy) APTT Sodium Potassium Chloride Carbon Dioxide Anion Gap BUN Creatinine Est GFR ( Amer) Est GFR (Non-Af Amer) BUN/Creatinine Ratio Glucose Hemoglobin A1c 5.8 H Lactic Acid 1.0 Calcium Total Bilirubin AST ALT Alkaline Phosphatase Troponin I Total Protein Albumin Globulin Albumin/Globulin Ratio Triglycerides Cholesterol LDL Cholesterol HDL Cholesterol Urine Color Yellow Urine Appearance Clear Urine pH 5.0 Ur Specific Reynolds 1.025 Urine Protein Negative Urine Ketones Negative Urine Blood Negative Urine Nitrate Negative Urine Bilirubin Negative Urine Urobilinogen Negative Ur Leukocyte Esterase Negative Urine Glucose Negative Urine Ascorbic Acid * A 02/25/19 06:00 WBC RBC Hgb Hct MCV MCH MCHC RDW Plt Count MPV Neut % (Auto) Lymph % (Auto) [place] % (Auto) Eos % (Auto) Baso % (Auto) Absolute Neuts (auto) Absolute Lymphs (auto) Absolute Monos (auto) Absolute Eos (auto) Absolute Basos (auto) Absolute Nucleated RBC Nucleated RBC % INR (Anticoag Therapy) APTT Sodium Potassium Chloride Carbon Dioxide Anion Gap BUN Creatinine Est GFR ( Amer) Est GFR (Non-Af Amer) BUN/Creatinine Ratio Glucose Hemoglobin A1c Lactic Acid Calcium Total Bilirubin AST ALT Alkaline Phosphatase Troponin I Total Protein Albumin Globulin Albumin/Globulin Ratio Triglycerides 108 Cholesterol 186 LDL Cholesterol 111 HDL Cholesterol 53.2 Urine Color Urine Appearance Urine pH Ur Specific Reynolds Urine Protein Urine Ketones Urine Blood Urine Nitrate Urine Bilirubin Urine Urobilinogen Ur Leukocyte Esterase Urine Glucose Urine Ascorbic Acid IMPRESSION: 88 year-old woman with history of hypertension, hypothyroidism and Takotsabos cardiomyopathy now with <5 minutes of right leg wobbly/ disjointed feeling, and increased distal leg tingling of unclear etiology on aspirin. Undergoing stroke work up. ON telemetry Echocardiogram ordered in evaluation of potential cardioembolic source of stroke. MRI ordered to look for injury that would clarify diagnosis. If stroke/tia she could benefit from statin therapy. Education given to patient regarding differential diagnosis and work up. Case discussed with Dr. Dumas. Patient is undergoing workup of pulmonary nodule at [place] and is expecting phone call tomorrow regarding plan. She will coordinate with family regarding this phone call. Bradycardia noted last night. Dr. Dumas is directing further work up. Further work up for neuropathy can be directed as outpatient, depending on evaluation already performed by primary care. Dr. Robertson aware of patient admission. >30 minutes spent in patient care.
[2019-02-25] MEDS: Atorvastatin* 40 MG TAB PO SCH (16:08)
[2019-02-26] MEDS: Levothyroxine TAB* 50 MCG TAB PO SCH (05:45)
[2019-02-26] MEDS: Heparin VIAL(*) 5000 UNITS/ML VIAL (FIVE THOUSAND) SUBCUT SCH (05:46)
[2019-02-26] MEDS: Lisinopril TAB* 5 MG PO SCH (10:32)
[2019-02-26] MEDS: Aspirin 81 mg CHEW TAB* 81 MG TAB.CHEW PO SCH (10:32)
--- NOTE | 2019-02-26 12:40 | PN ---
Subjective Date of Service: 02/26/19 Length of Stay: 2 Days Interval History: No new issues since her admission. She is doing well, wanting to go home today. No events on tele. Chronic numbness and tingling in the lower extremities to the shins, no new focal numbness, tingling or weakness. No problems speaking or swallowing. Ambulating without difficulty. Objective Active Medications: Aspirin (Aspirin 81 Mg Chew Tab*) 162 mg PO DAILY [facility] Last Admin: 02/26/19 10:32 Dose: 162 mg Atorvastatin Calcium (Lipitor*) 40 mg PO 1700 [facility] Last Admin: 02/25/19 16:08 Dose: 40 mg Heparin Sodium (Porcine) (Heparin Vial(*)) 5,000 units SUBCUT Q8HR [facility] Last Admin: 02/26/19 05:46 Dose: 5,000 units Levothyroxine Sodium (Synthroid Tab*) 50 mcg PO 0600 [facility] Last Admin: 02/26/19 05:45 Dose: 50 mcg Lisinopril (Prinivil Tab*) 10 mg PO DAILY [facility] Last Admin: 02/26/19 10:32 Dose: 10 mg Vital Signs 02/25/19 02/25/19 02/25/19 15:41 19:24 20:00 Temperature 98.1 F 97.9 F Pulse Rate 51 51 Respiratory 16 16 16 Rate Blood Pressure 106/56 119/56 (mmHg) O2 Sat by Pulse 98 98 99 Oximetry 02/25/19 02/26/19 02/26/19 22:56 04:02 08:00 Temperature 97.7 F 97.6 F Pulse Rate 52 58 Respiratory 16 18 18 Rate Blood Pressure 123/60 136/71 (mmHg) O2 Sat by Pulse 99 95 Oximetry Intake and Output Last 24 Hours 02/24/19 02/25/19 02/26/19 02/27/19 06:59 06:59 06:59 06:59 Intake Total 240 1440 500 Output Total 0 Balance 240 1440 500 Weight 178 lb 1.6 oz Intake: IV Fluids 0 IV Fluids 0 Oral 240 1440 500 Output: Urine 0 Oxygen Devices in Use Now: None Neurology Exam: General: Well nourished, well developed, and in no acute distress HEENT: Normocephalic/atraumatic, sclera anicteric, mucous membranes moist Neck: Supple Chest: Clear to auscultation bilaterally Cardiovascular: Regular rate and rhythm without murmurs Abdomen: Soft, non-tender/non-distended Extremities: No clubbing, cyanosis, or edema Neurological Findings: Awake, alert, and oriented to person, place, and time. Speech: fluent without dysarthria, repetition intact, recall intact Cranial Nerve: PERRL, EOM intact, VFF, no nystagmus, face symmetric bilaterally , facial sensation intact, hearing intact to finger rub bilaterally, palate elevates symmetrically, tongue midline Motor: 5/5 throughout, some limited ROM of the RUE proximally (chronic), proximal and distal extremities x4 tone/bulk normal, no drift Sensation: Loss of LT/PP in the feet to shins bilaterally Deep Tendon Reflex: Down throughout Finger to nose, rapid alternating movements intact without tremor, no dysdiadochokinesia Gait: wide based, steady Result Diagrams: 02/24/19 14:06 02/24/19 14:06 Assessment/Plan 88 year-old woman with history of HTN, Takotsabos cardiomyopathy, hypothyroidism, history of a lung nodule, in the process of workup presented with less than 5 minutes of her right leg feeling "wobbly" as well as tingling of her legs bilaterally, more than her baseline. -- TIA vs. Stroke workup: MRI, Echo pending --Given h/o Takotsabos, Echo to rule out structural abnormalities, low EF which might require additional anticoagulation -- Continue ASA. She may be going for biopsy, resection soon and I see no clear cut benefit at this point, given symptoms of DAPT -- Consider statin therapy given risk factors -- HTN control -- Continue Telemetry. No evidence of A.fib. Recommend outpatient 30 day monitor given cardiac history Lung Mass: -- Hypercoagulable secondary to possible lung mass? Would continue ASA for now. -- Follow up at [place] for additional workup If the MRI and Echo are ok, I think it is safe to d/c home with close follow up. Return to the ER with any further symptoms. Please schedule follow up with me/Tadeo Loco in 8-12 weeks.
[2019-02-26 13:01] VITALS: BP 117/64
[2019-02-26] MEDS ORDERED: Perflutren Lipid Microsphere* 3 ML VIAL ONE (13:54)
--- NOTE | 2019-02-26 16:25 | ECHO ---
*[facility]* [place] [address] Fax #: [phone] Transthoracic Echocardiogram Patient: Lissette, Height: 65 in / Shirley 165.1 cm : 1930 Weight: 177.6 lb / Study Date: 02/26/2019 80.7 kg Age: 88 BP: 136 / 74 Gender: F BMI/BSA: 29.6 kg/m^2 HR: 60 bpm / 1.88 m^2 *[employer] [place]: * Mariama Espinoza RDCS RN *Referring Physician: * Timo DumasReading Physician: * José Luis Escalera MD Indications: TIA. History: PMH: Takotsubo cardiomyopathy. Paroxysmal A. Fib. Asthma. Risk factors: Former tobacco use. Hypertension. Conclusions Summary: 1. Left ventricle: The cavity size is normal. Wall thickness is mildly to moderately increased. Systolic function is normal. The estimated ejection fraction is 55-60%. 2. Atrial septum: No defect or patent foramen ovale is identified. Bubble study was negative 3. Mitral valve: There is mild regurgitation. 4. Aortic valve: There is no evidence of stenosis. 5. Tricuspid valve: There is mild regurgitation. The estimated pulmonary artery pressure is 24mmHg. There is no pulmonary hypertension. Study data: Transthoracic echocardiogram. Procedure: Transthoracic echocardiography was performed. Image quality was fair. The study was technically limited due to body habitus and smoking history.A total of 3 ml of Definity was given IV. A bubble study was performed. Images 1 and 2. Agitated saline was administered IV for the bubble study. Image enhancement administered by Shayy Yepez RN. Complete 2D, spectral Doppler, and color flow Doppler. Patient status: Inpatient. Patient room number: 446-02. Rhythm: Normal sinus rhythm with PVC's. Findings Left ventricle: The cavity size is normal. Wall thickness is mildly to moderately increased. Systolic function is normal. The estimated ejection fraction is 55-60%. Wall motion is normal; there are no regional wall motion abnormalities. Doppler parameters are consistent with abnormal left ventricular relaxation (grade 1 diastolic dysfunction). Right ventricle: The cavity size is normal. Systolic function is normal. Left atrium: The atrium is mildly dilated. Right atrium: The atrium is normal in size. Atrial septum: No defect or patent foramen ovale is identified. Bubble study was negative Images 1 and 2. Mitral valve: The leaflets are mildly thickened. There is no evidence of stenosis. There is mild regurgitation. Aortic valve: The valve is trileaflet. The leaflets are mildly thickened. There is no evidence of stenosis. There is no regurgitation. Tricuspid valve: The valve is structurally normal. There is no evidence of stenosis. There is mild regurgitation. The estimated pulmonary artery pressure is 24mmHg. There is no pulmonary hypertension. Pulmonic valve: The valve is structurally normal. There is no evidence of stenosis. There is trace regurgitation. Aorta: Aortic root: The aortic root is not dilated. Ascending aorta: The ascending aorta is mildly dilated. Aortic arch: The aortic arch is not dilated. Pulmonary arteries: Not well visualized. Systemic veins: Inferior vena cava: The vessel is normal in size. The respirophasic diameter changes are in the normal range (>= 50%). Measurements Left ventricle Value Ref Aortic valve continued Value Ref AILEEN, LAX 4.3 cm 3.8 - Peak v, S 1.42 m/sec ----- 5.2 VTI, S 32.9 cm ----- ESD, LAX 3.1 cm 2.2 - Mean grad, S 4.0 mm Hg ----- 3.5 Peak grad, S 8.0 mm Hg ----- FS, LAX 29 % 27 - 45 LVOT/AV, VTI ratio 0.62 ----- PW, ED, LAX (H) 1.3 cm 0.6 - 0.9 Mitral valve Value Ref IVS/PW, ED 1.01 -------- Peak E 0.7 m/sec ----- E', lat janelle, TDI (L) 7.5 cm/sec >=10.0 Peak A 1.06 m/sec ----- E/e', lat janelle, TDI 9 -------- Decel time 468 ms --- -- E', med janelle, TDI (L) 6.7 cm/sec >=7.0 Peak E/A ratio 0.7 ----- E/e', med janelle, TDI 10 -------- E', avg, TDI 7.1 cm/sec -------- Pulmonic valve Value Ref E/e', avg, TDI 10 <=14 Peak v, S 0.88 m/sec ----- Peak grad, S 3.0 mm Hg ----- LVOT Value Ref Peak fredrick, S 0.94 m/sec -------- Tricuspid valve Value Ref VTI, S 20.5 cm -------- TR peak v 2.3 m/sec <=2.8 Mean grad, S 2 mm Hg -------- Peak RV-RA grad, S 21 mm Hg ----- Max TR fredrick 2.3 m/sec ----- Ventricular septum Value Ref IVS, ED (H) 1.3 cm 0.6 - Aortic root Value Ref 0.9 Root diam 3.5 cm <4.1 Root max diam, ED 3.5 cm <4.1 Right ventricle Value Ref AILEEN minor ax, A4C 3.5 cm 1.9 - Ascending aorta Value Ref mid 3.5 AAo AP diam, S 3.7 cm ----- Left atrium Value Ref Aortic arch Value Ref ML dim, A4C 4.2 cm -------- Arch diam 2.9 cm ----- SI dim, A4C 5.3 cm -------- Vol/bsa, ES, 1-p 26 ml/m^2 11 - 40 Decending aorta Value Ref A4C Tea peak fredrick 0.71 m/sec ----- Vol/bsa, ES, A/L (H) 35 ml/m^2 16 - 34 Inferior vena cava Value Ref Right atrium Value Ref Diam 1.6 cm ----- ML dim, ES, A4C 3.6 cm 2.6 - 4.4 SI dim, ES, A4C 5.2 cm 3.4 - 5.3 Estimated RAP 3 mm Hg -------- Aortic valve Value Ref Janelle diam, ED 2.0 cm -------- Legend: (L) and (H) amie values outside specified reference range. Prepared and electronically signed by José Luis Escalera MD 02/26/2019 16:25
== END 2019-02-26 15:50 | disposition home or self-care (01) | DRG 69 ==
LOC: ED 13:40 → MEDTELE 15:34 → OBSVTOIN 02-25 15:34
PROVIDERS: ADMIT Internal Medicine; ATTEND Internal Medicine Geriatric Medicine
DX: G45.9 Transient cerebral ischemic attack, unspecified (principal); I51.81 Takotsubo syndrome; G95.89 Other specified diseases of spinal cord; I10 Essential (primary) hypertension; E03.9 Hypothyroidism, unspecified; G62.9 Polyneuropathy, unspecified; R73.03 Prediabetes; R91.1 Solitary pulmonary nodule; Z66 Do not resuscitate; I48.0 Paroxysmal atrial fibrillation; M75.101 Unspecified rotator cuff tear or rupture of right shoulder, not specified as traumatic; H91.8X2 Other specified hearing loss, left ear; J45.909 Unspecified asthma, uncomplicated; M19.90 Unspecified osteoarthritis, unspecified site; K21.9 Gastro-esophageal reflux disease without esophagitis; M54.5 Low back pain; Z87.891 Personal history of nicotine dependence; Z85.828 Personal history of other malignant neoplasm of skin; Z79.82 Long term (current) use of aspirin; Z79.899 Other long term (current) drug therapy; Z82.49 Family history of ischemic heart disease and other diseases of the circulatory system
CPT/HCPCS: 36415; 70450; 70496; 70498; 70551; 71045; 80053; 80061; 81003; 83036; 83605; 84443; 84484; 85025; 85610; 85730; 93005; 93306; 99284; A9270-GY; C8929; G0378; J1644; Q9967